=== PATIENT | male | born 1940 | race Asian ===

== ENCOUNTER 2017-07-05 08:15 | Inpatient (IN) | payer MEDICARE, MEDICAID ==
[~2017-07-05] VITALS: Ht 162.6 cm; Wt 68.0 kg
--- NOTE | 2017-07-05 08:27 | Emergency Room Report ---
History of Present Illness General Chief Complaint: Generalized Weakness Source: Patient, EMS Present Illness HPI history of present illness obtained via Polish outside salesman 76-year-old male Brought in by EMS from home for low blood pressure Per patient's son on scene, patient's blood pressure usually systolic 90, this morning blood [id number] Dialysis Saturday Patient was recently in the hospital for suture repair of right leg laceration and for placement of right-sided dialysis catheter Patient himself has no complaints: Denies chest pain, shortness of breath, abdominal pain, weakness, dizziness Allergies: Coded Allergies: No Known Allergies (Verified , 04/24/10) Patient History Past Medical History: DM Past Surgical History: other - Right chest permacath Pertinent Family History: none Social History: Denies: smoking, alcohol use, drug use Immunizations: UTD Reviewed Nursing Documentation: PMH: Agreed, PSxH: Agreed Nursing Documentation-PMH Past Medical History: No History, Except For Hx Cardiac Problems: Yes Hx Diabetes: Yes Hx Dialysis: Yes - [facility]. Review of Systems All Other Systems: negative except mentioned in HPI Physical Exam Vital Signs Date Time Temp Pulse Resp B/P (MAP) Pulse Ox O2 Delivery O2 Flow Rate FiO2 07/05/17 08:11 88 20 110/70 97 Room Air Sp02 EP Interpretation: reviewed, normal General Appearance: normal inspection, well appearing, no apparent distress, alert, GCS 15, non-toxic, other - weak appearing Head: normocephalic, atraumatic Eyes: bilateral eye PERRL, bilateral eye EOMI ENT: normal ENT inspection, hearing grossly normal, normal pharynx, no angioedema, normal voice, TMs + canals normal, uvula midline, moist mucus membranes Neck: normal inspection, full range of motion, supple, thyroid normal, no meningismus, no bony tend Respiratory: normal inspection, lungs clear, normal breath sounds, no rhonchi, no respiratory distress, no retraction, no accessory muscle use, no wheezing, speaking full sentences, other - bedside ultrasound: No B-lines/pulm edema Cardiovascular #1: regular rate, rhythm, no edema, no JVD, normal capillary refill, other - permacath right chest wall; bedside echo: no pericardial effusion Gastrointestinal: normal inspection, normal bowel sounds, non tender, soft, no mass, no peritonitis, non-distended, no guarding, no hernia, no pulsatile mass, other - Catheter on right abdomen - peritoneal? Genitourinary: no CVA tenderness Musculoskeletal: normal inspection, back normal, normal range of motion, no calf tenderness, pelvis stable, Keli's Sign negative, other - Right leg: large 8-10cm healing laceration with sutures. Neurologic: normal inspection, alert, responsive, setter machine III-XII nml as tested, motor strength/tone normal, cerebellar normal, normal gait, speech normal Psychiatric: normal inspection, judgement/insight normal, mood/affect normal, no suicidal/homicidal ideation, no delusions Skin: normal inspection, normal color, no rash Lymphatic: normal inspection, no adenopathy Procedures Critical Care Time Critical Care Time CC time 35 min Critical care time endorsed for this patient for AMS, hypotension Critical care time includes review of laboratory tests, imaging, review of EMR, review of paperwork from SNF (if available), discussion with patient and family (if available), review of code status/POLS (if available). Critical care time also likely includes assessment of fluid status, stabilization of vital signs, selection and dosing of appropriate antibiotics, selection and dosing of Aspirin/Plavix/Heparin/Lovenox, discussion with PMD/ attending hospitalist/general maintenance technician. Critical care time does not include any procedures which are documented elsewhere in this EMR. Medical Decision Making Medicare Attestation I Rajni Cordon MD hereby attest that the medical record entry for date of service, 07/05/17 accurately reflects signatures/notations that I made in my capacity as MD when I treated/diagnosed the above listed Medicare beneficiary. I attest that this information is true, accurate and complete to the best of my knowledge. I understand that any falsification, omission, or concealment of material fact may subject me to administrative, civil, or criminal liability. This patient warrants hospital admission for extreme of age and has a condition that cannot be treated as outpatient. Diagnostic Impression: Primary Impression: Episode of generalized weakness Additional Impressions: Hypotension Qualified Codes: I95.9 - Hypotension, unspecified Atrial fibrillation Qualified Codes: I48.2 - Chronic atrial fibrillation CKD (chronic kidney disease) requiring chronic dialysis ER Course 76-year-old male brought in for hypotension Here blood pressure is normal Known afib, not in RVR currently Patient remains asymptomatic Not in acute pulmonary edema, fluid overload Pro BNP is very elevated however creatinine is also elevated and in setting of known Ckd, it is unreliable indicator of acute CHF. Patient's lungs CTAB on auscultation and on bedside ultrasound. O2 sat 100% on RA. Unlikely acute pulm edema. CT head negative on ED review Serum Cr elevated but K normal Trop WNL ECG shows lateral ischemia - likely chronic Needs admission for ACS rule out BP remains stable in the ED Endorsed to Dr Rangel for tele admit, 936am EKG Diagnostic Results Rate: normal Rhythm: other - Atrial fib ST Segments: other - 1, AVL, V4-[address] depressions, Qwave in V3 Rhythm Strip Diag. Results EP Interpretation: yes Rate: 74 Rhythm: other - Multiple PVCs Chest X-Ray Diagnostic Results Chest X-Ray Diagnostic Results : Chest X-Ray Ordered: Yes Indication: Other - AMS EP Interpretation: Yes Interpretation: no consolidation, no effusion, no pneumothorax, no acute cardiopulmonary disease Impression: No acute disease Electronically Signed by: Dr Rajni Cordon MD Last Vital Signs Date Time Temp Pulse Resp B/P (MAP) Pulse Ox O2 Delivery O2 Flow Rate FiO2 07/05/17 08:11 88 20 110/70 97 Room Air Status: improved Disposition: ADMITTED INPATIENT Condition: Serious RAJNI CORDON M.D. Jul 05, 2017 08:27
[2017-07-05 08:39] VITALS: BP 116/65
[2017-07-05 08:53] LABS: BASOPHILS % (AUTO) 1.4 % (0.0-2.0); EOSINOPHILS % (AUTO) 1.9 % (0.0-3.0); LYMPHOCYTES % (AUTO) 19.9 % (20.0-45.0); MEAN CORPUSCULAR HEMOGLOBIN 32.8 PG (27.0-31.0); MEAN CORPUSCULAR VOLUME 103 FL (80-99); MEAN PLATELET VOLUME 7.1 FL (6.5-10.1); MONOCYTES % (AUTO) 14.4 % (1.0-10.0); NEUTROPHILS % (AUTO) 62.4 % (45.0-75.0); PLATELET COUNT 179 K/UL (150-450); RED BLOOD COUNT 3.14 M/UL (4.70-6.10); RED CELL DISTRIBUTION WIDTH 15.4 % (11.6-14.8); WHITE BLOOD COUNT 4.6 K/UL (4.8-10.8)
[2017-07-05 08:57] LABS: ANION GAP 12 mmol/L (5-15); CALCIUM 8.7 MG/DL (8.5-10.1); CARBON DIOXIDE 24 MMOL/L (21-32); CHLORIDE 104 MMOL/L (98-107); CREATININE 4.6 MG/DL (0.55-1.30); POTASSIUM 4.3 MMOL/L (3.5-5.1); SODIUM 140 MMOL/L (136-145)
[2017-07-05] MEDS ORDERED: METOPROLOL SUCC25 MG (09:00)
[2017-07-05] MEDS ORDERED: DIGOXIN125 MCG (09:00)
[2017-07-05] MEDS ORDERED: DOXAZOSIN MESYLA4 MG (09:00)
[2017-07-05] MEDS ORDERED: ELIQUIS2.5 MG (09:00)
[2017-07-05] MEDS ORDERED: LEVOTHYROXINE100 MCG (09:00)
[2017-07-05] MEDS ORDERED: MIDODRINE HCL5 MG (09:00)
[2017-07-05] MEDS ORDERED: PANTOPRAZOLE SO40 MG (09:00)
[2017-07-05] MEDS ORDERED: LOVAZA1 GM ORAL (09:02)
[2017-07-05] MEDS ORDERED: HUMALOG100 UNIT/3 (09:02)
[2017-07-05 09:12] LABS: ALANINE AMINOTRANSFERASE 6 U/L (12-78); ALBUMIN/GLOBULIN RATIO 0.6 (1.0-2.7); ASPARTATE AMINO TRANSFERASE 18 U/L (15-37); TOTAL PROTEIN 6.8 G/DL (6.4-8.2)
[2017-07-05 10:22] VITALS: BP 101/46
--- NOTE | 2017-07-05 10:22 | Diagnostic Imaging Report ---
Indication: Altered mental status Technique: spiral acquisitions obtained through the brain. Angled axial and coronal 5 x 5 mm slices were reconstructed. No IV contrast utilized. Radiation dose was minimized using automated exposure control Total dose length product 1453 mGycm. CTDIvol(s) 70 mGy Comparison: 01/02/2011 FINDINGS: No acute hemorrhage or edema. No mass effect or midline shift. There is progressive age-related enlargement of the ventricles and extra axial CSF spaces. There is periventricular deep white matter ischemic change which has increased considerably in the interim. Normal worrell-white differentiation. Visualized orbits are unremarkable. Visualized sinuses are unremarkable. Intact calvarium. IMPRESSION: Chronic and age-related changes which have progressed considerably since prior study of 01/02/2011. Negative for acute intracranial bleed or mass effect The CT scanner at [facility] is accredited by the [employer] and the scans are performed using protocols designed to limit radiation exposure to as low as reasonably achievable to attain images of sufficient resolution adequate for diagnostic evaluation
[2017-07-05] MEDS ORDERED: Sodium Chloride 500ML 500 ML IV ONE ×2 (10:45→17:40)
[2017-07-05 11:45] VITALS: BP 119/52
[2017-07-05 12:55] VITALS: BP 88/47
--- NOTE | 2017-07-05 14:04 | Diagnostic Imaging Report ---
Indication: Reason For Exam: SOB Technique: One view of the chest Comparison: 01/02/2011 Findings: There is infiltrate and likely pleural fluid at the left lung base. Trace right-sided pleural fluid is also evident. There are surgical odilia in the right arm. There is a right chest tunneled dialysis catheter. The heart is mildly enlarged. The aorta is tortuous and calcified Impression: Left basilar infiltrate and likely pleural fluid Small right pleural effusion Mild cardiomegaly
[2017-07-05 16:00] VITALS: BP_SYST 130; BP_SYST 93; BP_DIAS 58; BP_DIAS 61
[2017-07-05] MEDS ORDERED: Miralax 17gm pkt ORAL PRN (19:30)
--- NOTE | 2017-07-05 19:44 | History & Physical ---
History and Physical History & Physicial job # [id number] Toño Rangel MD Jul 05, 2017 19:44
--- NOTE | 2017-07-05 19:53 | Cardiology Progress Note ---
Assessment/Plan Assessment/Plan [id number] Objective Last 24 Hour Vital Signs Date Time Temp Pulse Resp B/P (MAP) Pulse Ox O2 Delivery O2 Flow Rate FiO2 07/05/17 16:00 81 07/05/17 16:00 97.7 90 20 93/58 96 07/05/17 12:55 97.4 90 19 88/47 94 Room Air 07/05/17 12:54 84 07/05/17 11:46 99.4 80 19 101/46 98 Room Air 07/05/17 11:45 99.4 82 21 119/52 100 Room Air 07/05/17 10:22 99.4 80 19 101/46 98 Room Air 07/05/17 08:39 99.4 84 21 116/65 98 Room Air 07/05/17 08:11 88 20 110/70 97 Room Air Intake and Output 07/05/17 07/06/17 19:00 07:00 Intake Total 500 ml 500 ml Balance 500 ml 500 ml Intake IV Total 500 ml Other 500 ml Laboratory Tests Test 07/05/17 08:20 White Blood Count 4.6 K/UL (4.8-10.8) L Red Blood Count 3.14 M/UL (4.70-6.10) L Hemoglobin 10.3 G/DL (14.2-18.0) L Hematocrit 32.2 % (42.0-52.0) L Mean Corpuscular Volume 103 FL (80-99) H Mean Corpuscular Hemoglobin 32.8 PG (27.0-31.0) H Mean Corpuscular Hemoglobin Concent 32.0 G/DL (32.0-36.0) Red Cell Distribution Width 15.4 % (11.6-14.8) H Platelet Count 179 K/UL (150-450) Mean Platelet Volume 7.1 FL (6.5-10.1) Neutrophils (%) (Auto) 62.4 % (45.0-75.0) Lymphocytes (%) (Auto) 19.9 % (20.0-45.0) L Monocytes (%) (Auto) 14.4 % (1.0-10.0) H Eosinophils (%) (Auto) 1.9 % (0.0-3.0) Basophils (%) (Auto) 1.4 % (0.0-2.0) Sodium Level 140 MMOL/L (136-145) Potassium Level 4.3 MMOL/L (3.5-5.1) Chloride Level 104 MMOL/L (98-107) Carbon Dioxide Level 24 MMOL/L (21-32) Anion Gap 12 mmol/L (5-15) Blood Urea Nitrogen 42 mg/dL (7-18) H Creatinine 4.6 MG/DL (0.55-1.30) H Estimat Glomerular Filtration Rate mL/min (>60) Glucose Level 185 MG/DL (74-106) H Calcium Level 8.7 MG/DL (8.5-10.1) Total Bilirubin 1.5 MG/DL (0.2-1.0) H Direct Bilirubin 1.0 MG/DL (0.0-0.3) H Aspartate Amino Transf (AST/SGOT) 18 U/L (15-37) Alanine Aminotransferase (ALT/SGPT) 6 U/L (12-78) L Alkaline Phosphatase 58 U/L (46-116) Total Creatine Kinase 36 U/L (26-308) Creatine Kinase MB 2.0 NG/ML (0.0-3.6) Creatine Kinase MB Relative Index 5.5 Troponin I 0.045 ng/mL (0.000-0.056) Pro-B-Type Natriuretic Peptide 17642 pg/mL (0-125) H Total Protein 6.8 G/DL (6.4-8.2) Albumin 2.6 G/DL (3.4-5.0) L Globulin 4.2 g/dL Albumin/Globulin Ratio 0.6 (1.0-2.7) L GRIFFIN ALMONTE Jul 05, 2017 19:53
[2017-07-05 20:00] VITALS: BP 103/61
[2017-07-05] MEDS ORDERED: Cefepime HCl 1 GM in D5W 55 ML IVPB SCH (20:30)
[2017-07-05] MEDS ORDERED: Vancomycin 1250mg/D5W 250ml IVPB ONE (21:00)
[2017-07-05] MEDS: NovoLOG Insulin Flexpen SUBQ SCH (21:12)
[2017-07-05] MEDS: Docusate 100mg cap ORAL SCH (21:13)
[2017-07-06] VITALS (9 sets, daily range): BP systolic 80–107; BP diastolic 51–74
--- NOTE | 2017-07-06 01:17 | Consultation ---
DATE OF CONSULTATION: 07/05/2017 CARDIOLOGY CONSULTATION CONSULTING PHYSICIAN: Faisal Ortega M.D. REFERRING PHYSICIAN: Carlos Rangel M.D. REASON FOR REFERRAL: Hypotension. HISTORY OF PRESENT ILLNESS: This is a very unfortunate gentleman, who is 76-year-old with a history of end-stage renal disease, on hemodialysis for approximately 3 years, but has apparently atrial fibrillation on prior occasions. The patient has recently been in a hospital for laceration repair somewhere as I understand it. His blood pressure usually on the low side. It is lower than usual in the 60s. Paramedics were summoned. The patient was brought into the emergency room at [facility] with some improvement in his blood pressure. This consultation was requested. The patient denies any chest pain. Denies any shortness of breath. Denies any dizziness or lightheadedness. However, the information that is provided to me, I am not sure how accurate it is. PAST MEDICAL HISTORY: Obtained from the patient's over the phone. He used to have high blood pressure, not low blood pressure; diabetes; possibly history of two prior heart attacks. No cancer. No stroke. No hepatitis. No tuberculosis. No asthma. No emphysema. He does have a history of kidney problems. No liver problems, thyroid problems, or anemia. ALLERGIES: He is not allergic to any medication. SOCIAL HISTORY: He does not smoke. Does not drink alcoholic beverages. REVIEW OF SYSTEMS: Unable to obtain. PHYSICAL EXAMINATION: GENERAL: Shows him to be an elderly gentleman, in no respiratory distress. NECK: Supple. No jugular venous distention. No abdominojugular reflux noted. LUNGS: Clear to auscultation and percussion. CARDIAC EXAMINATION: S1 is normal. S2 is normal. Irregularly irregular. There is a holosystolic regurgitant murmur noted. ABDOMEN: Soft and nontender. Positive bowel sounds. EXTREMITIES: There is no edema. NEUROLOGIC: He is awake and responsive. LABORATORY AND DIAGNOSTIC DATA: He had a CT scan of his head that shows chronic age-related changes, progressed since the prior study in 2010. A chest x-ray performed shows left basilar infiltrate, likely small right pleural effusion and mild cardiomegaly. His EKG shows atrial fibrillation. Ventricular response appears to be well controlled. He does have some ST-segment depression in multiple leads, chronicity of which is unfortunately unknown. His blood tests show white count of 4.6, hemoglobin 10.3 and platelet count of 179. Sodium is 140, potassium 4.3, chloride 104, bicarbonate 24, BUN 42, creatinine 4.6 and glucose of 185. Calcium is 8.7. Troponin is 0.05. ProBNP is 15,000. Laboratories are otherwise pending. ASSESSMENT: 1. Hypotension. The possibilities include volume and/or distributive sepsis. 2. Atrial fibrillation, likely permanent. Ventricular response appears to be controlled. 3. End-stage renal disease, on hemodialysis. Dr. Rangel, this patient was seen in cardiac consultation. The patient appears to be quite comfortable. His most recent blood pressure is 93/58. His baseline reportedly is in the 90s. Pulse is 90. He is afebrile. I will follow him up. I ordered a set of cortisol and cardiac enzymes for tomorrow and an echocardiogram and repeat EKG. If needed, a small bolus of fluid will be administered in light of the fact that the patient has end-stage renal disease, and on hemodialysis, I would like to avoid volume of significant degree if possible. Faisal Ortega M.D. DR: CAROL JOB#: [id number] CC:
--- NOTE | 2017-07-06 01:17 | History and Physical Report ---
DATE OF ADMISSION: 07/05/2017 CHIEF COMPLAINT: Hypotension. HISTORY OF PRESENT ILLNESS: This is a 76-year-old Italian gentleman with past medical history significant for end-stage renal disease, on hemodialysis, was on peritoneal dialysis switched to hemodialysis recently, history of hypotension, hypothyroidism, chronic atrial fibrillation, coronary artery disease, diabetes type 2, who was presented to the hospital after he was found to be hypotensive at home. His usual systolic blood pressure is in the 90s, however, at home in the morning, it was 60/40. The patient usually goes on dialysis Saturday, Saturday, and Saturday and was recently seen at the hospital for suture repair of the right lower extremity laceration and for placement of the right-sided dialysis access, AV fistula. The patient shortly after initial evaluation in emergency was noted to have blood pressure of 110/70 and a repeat one was noted to be 88/47 and subsequently, the patient was admitted to the hospital for further evaluation and workup of possible sepsis. PAST MEDICAL HISTORY AND PAST SURGICAL HISTORY: As above. History of diabetes type 2, end-stage renal disease, he used to be on peritoneal dialysis switched to the hemodialysis at this time, history of hypothyroidism, atrial fibrillation, coronary artery disease, diabetes type 2, status post right-side chest wall PermCath placement as well as right upper extremity AV fistula, and a peritoneum catheter placement. MEDICATIONS: At home, significant for Eliquis, digoxin, doxazosin, lispro insulin, levothyroxine, metoprolol, midodrine, Lovaza, and Nexium. ALLERGIES: No known drug allergies. SOCIAL HISTORY: No smoking, alcohol, or drugs at this time. FAMILY HISTORY: Noncontributory. REVIEW OF SYSTEMS: Very limited secondary to the patient is Italian speaking and he is not very cooperative, however, the patient denies any fever or chills. Denies any nausea or vomiting. Denies any chest pain. Denies any double vision. PHYSICAL EXAMINATION: VITAL SIGNS: Temperature of 97.7, pulse of 92, respirations 20, blood pressure 88/47 and repeat was 93/58. GENERAL: The patient is awake, responsive, in no acute distress. HEAD AND NECK: Pupils are equal and reactive to light. Extraocular movements are intact. Neck was supple. No JVD. LUNGS: Good air entry. No wheezing or rales. Decreased in the bases. Poor inspiratory effort. CHEST: The patient has PermCath that was noted in the right side of chest wall. HEART: S1 and S2. Irregularly irregular. No murmur was appreciated. ABDOMEN: Soft, not distended. Peritoneal catheter was noted in the right lower quadrant. EXTREMITIES: No cyanosis, clubbing, or edema. The patient has a laceration with Steri-Strips on the right lower extremity and anterior mims as well as right upper extremity has an AV fistula. NEUROLOGIC: Cranial nerves II through XII grossly intact. That patient is moving all extremities slowly. Gait was not assessed due to the patient's status. LABORATORY AND DIAGNOSTIC DATA: On admission, sodium 140, potassium 4.2, chloride 104, bicarbonate 24, BUN 42, creatinine 4.6, and glucose 185. Total bilirubin of 1.5, direct bilirubin of 1.0, AST of 18, ALT of 6, alkaline phosphatase of 58. First troponin 0.045. ProBNP 14,969. Albumin 2.6. WBC of 4.6, hemoglobin 10.3, hematocrit 32, and platelets 179,000. The patient had chest x-ray, left basilar infiltrate and likely pleural effusion, small right pleural effusion, mild cardiomegaly. CT of the was done and shows chronic and age-related changes which have been progressive considerably since prior study and negative for acute intracranial bleed or mass effect. The patient's EKG shows atrial fibrillation with ventricular rate of 85, the patient has ST depression in the inferolateral leads, no ST elevation was identified. ASSESSMENT: 1. Hypotension, possibly due to the sepsis. 2. End-stage renal disease, on hemodialysis. 3. Anemia of chronic kidney disease. 4. Hypothyroidism. 5. Acute atrial fibrillation. 6. Coronary artery disease. 7. Diabetes type 2. 8. Right anterior mims laceration. PLAN: Admit the patient to telemetry. We will follow up with Dr. Faisal Ortega from cardiology and Dr. Marcus Vance from nephrology. We will monitor laboratory. IV hydration was given already boluses. We will follow up with the laboratory in the morning. Broad-spectrum antibiotics of vancomycin and cefepime. We will follow up with culture. We will Accu-Chek with sliding scale. Resume home medications. We will consider to get PT and OT evaluation in the morning. Code status is full code. DVT prophylaxis with Eliquis. Toño Rangel M.D. DR: Mora JOB#: [id number] CC:
[2017-07-06] MEDS: NovoLOG Insulin Flexpen SUBQ SCH ×4 (05:54→22:06)
[2017-07-06 07:48] LABS: EOSINOPHILS % (AUTO) 2.4 % (0.0-3.0); LYMPHOCYTES % (AUTO) 16.8 % (20.0-45.0); MEAN CORPUSCULAR HGB CONC 33.7 G/DL (32.0-36.0); MEAN CORPUSCULAR VOLUME 101 FL (80-99); MEAN PLATELET VOLUME 7.1 FL (6.5-10.1); MONOCYTES % (AUTO) 13.9 % (1.0-10.0); NEUTROPHILS % (AUTO) 65.9 % (45.0-75.0); PLATELET COUNT 170 K/UL (150-450); RED BLOOD COUNT 2.68 M/UL (4.70-6.10); RED CELL DISTRIBUTION WIDTH 14.9 % (11.6-14.8); WHITE BLOOD COUNT 4.1 K/UL (4.8-10.8)
[2017-07-06 08:18] LABS: ANION GAP 13 mmol/L (5-15); CALCIUM 8.2 MG/DL (8.5-10.1); CARBON DIOXIDE 20 MMOL/L (21-32); CHLORIDE 109 MMOL/L (98-107); CHOLESTEROL 123 MG/DL (< 200); CHOLESTEROL/HDL RATIO 9.5 (3.3-4.4); CREATININE 4.1 MG/DL (0.55-1.30); DIGOXIN 1.4 NG/ML (0.5-2.0); MAGNESIUM 1.8 MG/DL (1.8-2.4); POTASSIUM 3.7 MMOL/L (3.5-5.1); SODIUM 142 MMOL/L (136-145)
[2017-07-06 08:21] LABS: HEMOGLOBIN A1C 6.5 % (4.3-6.0)
[2017-07-06] MEDS: Metoprolol Succinate XL 25mg tab ORAL SCH (09:00)
[2017-07-06] MEDS ORDERED: Digoxin 0.125mg tab ORAL SCH (09:00)
--- NOTE | 2017-07-06 09:05 | Consultation ---
Consult Note Consult Note asked to eval for dialysis management history of present illness obtained via Arabic scientist 76-year-old male Brought in by EMS from home for low blood pressure Per patient's son on scene, patient's blood pressure usually systolic 90, this morning blood [id number] Dialysis Saturday Patient was recently in the hospital for suture repair of right leg laceration and for placement of right-sided dialysis catheter Patient himself has no complaints: Denies chest pain, shortness of breath, abdominal pain, weakness, dizziness Past Medical History: DM Past Surgical History: other - Right chest permacath Past Medical History: No History, Except For Hx Cardiac Problems: Yes Hx Diabetes: Yes Hx Dialysis: Yes - [facility]. examined- data reviewed Assessment/Plan - End-stage renal disease, on hemodialysis. previously on PD, has right-side chest wall PermCath placement - Hypotension, possibly due to the sepsis. - Anemia of chronic kidney disease. - Hypothyroidism. - Acute atrial fibrillation. - Coronary artery disease. - Diabetes type 2. Plan: Antibiotics HD Midodrin per orders JULIO CESAR LONGO Jul 06, 2017 09:05
[2017-07-06] MEDS: Docusate 100mg cap ORAL SCH ×2 (10:35→22:04)
[2017-07-06] MEDS: Eliquis 2.5mg tablet ORAL SCH ×2 (10:41→18:33)
--- NOTE | 2017-07-06 13:26 | Cardiology Progress Note ---
Assessment/Plan Assessment/Plan 1. Hypotension. resolved 2. Atrial fibrillation, likely permanent. Ventricular response appears to be controlled. 3. End-stage renal disease, on hemodialysis 4. Low tsh all trop neg bp seem improved on midodrine dig level is fine check remainder of tfts chage dig to evefy other day on hemodialysis may need less tele afib Subjective ROS Limited/Unobtainable: Yes Subjective not verbal to a sig degree Objective Last 24 Hour Vital Signs Date Time Temp Pulse Resp B/P (MAP) Pulse Ox O2 Delivery O2 Flow Rate FiO2 07/06/17 10:35 69 07/06/17 08:00 85 07/06/17 08:00 97.2 75 18 104/53 100 Room Air 07/06/17 04:00 97.9 87 18 101/66 100 07/06/17 04:00 77 07/06/17 00:00 97.0 80 18 94/70 100 07/05/17 21:00 78 07/05/17 20:00 97.5 88 18 103/61 100 Room Air 07/05/17 16:00 81 07/05/17 16:00 97.7 90 20 93/58 96 General Appearance: no apparent distress, alert Neck: no JVD Cardiovascular: systolic murmur, irregularly irregular Respiratory/Chest: crackles/rales Abdomen: normal bowel sounds, non tender, soft Extremities: no calf tenderness Intake and Output 07/06/17 07/07/17 19:00 07:00 Intake Total 120 ml Balance 120 ml Intake Oral 120 ml Laboratory Tests Test 07/06/17 05:30 White Blood Count 4.1 K/UL (4.8-10.8) L Red Blood Count 2.68 M/UL (4.70-6.10) L Hemoglobin 9.1 G/DL (14.2-18.0) L Hematocrit 27.1 % (42.0-52.0) L Mean Corpuscular Volume 101 FL (80-99) H Mean Corpuscular Hemoglobin 34.0 PG (27.0-31.0) H Mean Corpuscular Hemoglobin Concent 33.7 G/DL (32.0-36.0) Red Cell Distribution Width 14.9 % (11.6-14.8) H Platelet Count 170 K/UL (150-450) Mean Platelet Volume 7.1 FL (6.5-10.1) Neutrophils (%) (Auto) 65.9 % (45.0-75.0) Lymphocytes (%) (Auto) 16.8 % (20.0-45.0) L Monocytes (%) (Auto) 13.9 % (1.0-10.0) H Eosinophils (%) (Auto) 2.4 % (0.0-3.0) Basophils (%) (Auto) 1.0 % (0.0-2.0) Sodium Level 142 MMOL/L (136-145) Potassium Level 3.7 MMOL/L (3.5-5.1) Chloride Level 109 MMOL/L (98-107) H Carbon Dioxide Level 20 MMOL/L (21-32) L Anion Gap 13 mmol/L (5-15) Blood Urea Nitrogen 42 mg/dL (7-18) H Creatinine 4.1 MG/DL (0.55-1.30) H Estimat Glomerular Filtration Rate mL/min (>60) Glucose Level 114 MG/DL (74-106) H Hemoglobin A1c 6.5 % (4.3-6.0) H Calcium Level 8.2 MG/DL (8.5-10.1) L Magnesium Level 1.8 MG/DL (1.8-2.4) Troponin I 0.055 ng/mL (0.000-0.056) Triglycerides Level 169 MG/DL (30-150) H Cholesterol Level 123 MG/DL (< 200) LDL Cholesterol 79 mg/dL (<100) HDL Cholesterol 13 MG/DL (40-60) L Cholesterol/HDL Ratio 9.5 (3.3-4.4) H Thyroid Stimulating Hormone (TSH) 0.250 uiU/mL (0.358-3.740) Digoxin Level 1.4 NG/ML (0.5-2.0) GRIFFIN ALMONTE Jul 06, 2017 13:26
--- NOTE | 2017-07-06 14:34 | Internal Med Progress Note ---
Subjective Date of Service: Jul 06, 2017 Physician Name Joseph Corral Attending Physician Toño Rangel MD Current Medications Medications (Trade) Dose Ordered Sig/Dana Route PRN Reason Start Time Stop Time Status Last Admin Dose Admin Acetaminophen (Tylenol) 650 mg Q4H PRN ORAL Mild Pain (Pain Scale 1-3) 07/05/17 19:30 08/04/17 19:29 Acetaminophen (Tylenol) 650 mg Q4H PRN ORAL T>100.5 07/05/17 19:30 08/04/17 19:29 Apixaban (Eliquis) 2.5 mg BID ORAL 07/06/17 09:00 08/05/17 08:59 07/06/17 10:41 Bisacodyl (Dulcolax) 10 mg DAILYPRN PRN RECTAL Constipation 07/05/17 19:45 08/04/17 19:29 Cefepime HCl 1 gm/ Dextrose 55 ml @ 110 mls/hr Q24H IVPB 07/05/17 20:30 07/12/17 20:29 07/05/17 21:11 Chlorhexidine Gluconate (Tiny-Hex 2%) 1 applic DAILY@2000 TOPIC 07/06/17 20:00 08/05/17 19:59 Dextrose (Dextrose 50%) STAT PRN IV Hypoglycemia 07/05/17 19:30 08/04/17 19:29 Digoxin (Lanoxin) 0.125 mg QOD ORAL 07/08/17 09:00 08/05/17 08:59 UNV Docusate Sodium (Colace) 100 mg EVERY 12 HOURS ORAL 07/05/17 21:00 08/04/17 20:59 07/06/17 10:35 Insulin Aspart (NovoLOG) BEFORE MEALS AND HS SUBQ 07/05/17 21:00 08/04/17 20:59 07/06/17 05:54 Levothyroxine Sodium (Synthroid) 50 mcg DAILY@0630 ORAL 07/07/17 06:30 08/06/17 06:29 Metoprolol Succinate (Toprol XL) 25 mg DAILY ORAL 07/06/17 09:00 08/05/17 08:59 Midodrine (Pro-Amatine) 5 mg Q8HR ORAL 07/06/17 06:00 08/05/17 05:59 07/06/17 05:40 Ondansetron HCl (Zofran) 4 mg Q6H PRN IVP Nausea & Vomiting 07/05/17 19:30 08/04/17 19:29 Pantoprazole (Protonix) 40 mg DAILY ORAL 07/06/17 09:00 08/05/17 08:59 07/06/17 10:35 Polyethylene Glycol (Miralax) 17 gm DAILYPRN PRN ORAL Constipation 07/05/17 19:30 08/04/17 19:29 Vancomycin HCl (Vanco rx to dose) 1 ea DAILY PRN MISC Per rx protocol 07/05/17 19:45 08/04/17 19:44 Allergies: Coded Allergies: No Known Allergies (Verified , 04/24/10) ROS Limited/Unobtainable: No Subjective 76 YO M admitted with hypotension and sepsis. Cover for Int Peña-Dr Rangel Objective Last Vital Signs Date Time Temp Pulse Resp B/P (MAP) Pulse Ox O2 Delivery O2 Flow Rate FiO2 07/06/17 10:35 69 07/06/17 08:00 97.2 18 104/53 100 Room Air Laboratory Tests Test 07/06/17 05:30 White Blood Count 4.1 K/UL (4.8-10.8) L Red Blood Count 2.68 M/UL (4.70-6.10) L Hemoglobin 9.1 G/DL (14.2-18.0) L Hematocrit 27.1 % (42.0-52.0) L Mean Corpuscular Volume 101 FL (80-99) H Mean Corpuscular Hemoglobin 34.0 PG (27.0-31.0) H Mean Corpuscular Hemoglobin Concent 33.7 G/DL (32.0-36.0) Red Cell Distribution Width 14.9 % (11.6-14.8) H Platelet Count 170 K/UL (150-450) Mean Platelet Volume 7.1 FL (6.5-10.1) Neutrophils (%) (Auto) 65.9 % (45.0-75.0) Lymphocytes (%) (Auto) 16.8 % (20.0-45.0) L Monocytes (%) (Auto) 13.9 % (1.0-10.0) H Eosinophils (%) (Auto) 2.4 % (0.0-3.0) Basophils (%) (Auto) 1.0 % (0.0-2.0) Sodium Level 142 MMOL/L (136-145) Potassium Level 3.7 MMOL/L (3.5-5.1) Chloride Level 109 MMOL/L (98-107) H Carbon Dioxide Level 20 MMOL/L (21-32) L Anion Gap 13 mmol/L (5-15) Blood Urea Nitrogen 42 mg/dL (7-18) H Creatinine 4.1 MG/DL (0.55-1.30) H Estimat Glomerular Filtration Rate mL/min (>60) Glucose Level 114 MG/DL (74-106) H Hemoglobin A1c 6.5 % (4.3-6.0) H Calcium Level 8.2 MG/DL (8.5-10.1) L Magnesium Level 1.8 MG/DL (1.8-2.4) Troponin I 0.055 ng/mL (0.000-0.056) Triglycerides Level 169 MG/DL (30-150) H Cholesterol Level 123 MG/DL (< 200) LDL Cholesterol 79 mg/dL (<100) HDL Cholesterol 13 MG/DL (40-60) L Cholesterol/HDL Ratio 9.5 (3.3-4.4) H Thyroid Stimulating Hormone (TSH) 0.250 uiU/mL (0.358-3.740) Digoxin Level 1.4 NG/ML (0.5-2.0) Intake and Output 07/06/17 07/07/17 19:00 07:00 Intake Total 120 ml Balance 120 ml Intake Oral 120 ml Assessment/Plan Assessment/Plan ASSESSMENT: 1. Hypotension, possibly due to the sepsis. 2. End-stage renal disease, on hemodialysis. 3. Anemia of chronic kidney disease. 4. Hypothyroidism. 5. Acute atrial fibrillation. 6. Coronary artery disease. 7. Diabetes type 2. 8. Right anterior mims laceration. PLAN: Admit the patient to telemetry. We will follow up with Dr. Faisal Ortega from cardiology and Dr. Marcus Vance from nephrology. We will monitor laboratory. IV hydration was given already boluses. We will follow up with the laboratory in the morning. Broad-spectrum antibiotics of vancomycin and cefepime. We will follow up with culture. We will Accu-Chek with sliding scale. Resume home medications. We will consider to get PT and OT evaluation in the morning. Code status is full code. DVT prophylaxis with Eliquis. Hemodialysis today 07/06/17 per nephrology JOSEPH CORRAL Jul 06, 2017 14:34
[2017-07-06] MEDS ORDERED: Sodium Chloride 500ML 500 ML IV ONE (15:45)
[2017-07-06] MEDS: Midodrine 10mg tab ORAL SCH (18:33)
[2017-07-06] MEDS ORDERED: Vancomycin 750mg/NS 250ml IVPB ONE (22:00)
[2017-07-06] MEDS: Dyna-Hex 2% Top Sol 2oz TOPIC SCH (22:04)
[2017-07-06] MEDS: Cefepime 500mg in D5W 55ml IVPB SCH (22:04)
[2017-07-07] VITALS: BP 94/56
[2017-07-07 04:50] VITALS: BP 96/56
[2017-07-07] MEDS: NovoLOG Insulin Flexpen SUBQ SCH ×4 (06:19→20:58)
[2017-07-07 07:55] LABS: BASOPHILS % (AUTO) 1.1 % (0.0-2.0); EOSINOPHILS % (AUTO) 1.6 % (0.0-3.0); LYMPHOCYTES % (AUTO) 16.1 % (20.0-45.0); MEAN CORPUSCULAR HEMOGLOBIN 33.5 PG (27.0-31.0); MEAN CORPUSCULAR HGB CONC 32.3 G/DL (32.0-36.0); MEAN CORPUSCULAR VOLUME 104 FL (80-99); MEAN PLATELET VOLUME 6.8 FL (6.5-10.1); MONOCYTES % (AUTO) 17.5 % (1.0-10.0); NEUTROPHILS % (AUTO) 63.8 % (45.0-75.0); PLATELET COUNT 174 K/UL (150-450); RED BLOOD COUNT 2.76 M/UL (4.70-6.10); RED CELL DISTRIBUTION WIDTH 15.3 % (11.6-14.8); WHITE BLOOD COUNT 4.9 K/UL (4.8-10.8)
[2017-07-07 08:00] VITALS: BP 98/52
[2017-07-07 08:12] LABS: HEMOGLOBIN A1C 6.8 % (4.3-6.0)
[2017-07-07 08:15] LABS: IRON 71 ug/dL (50-175); TOTAL IRON BINDING CAPACITY 121 ug/dL (250-450)
[2017-07-07 08:19] LABS: ALANINE AMINOTRANSFERASE < 6 U/L (12-78); ALBUMIN/GLOBULIN RATIO 0.6 (1.0-2.7); ANION GAP 10 mmol/L (5-15); ASPARTATE AMINO TRANSFERASE 21 U/L (15-37); CALCIUM 8.1 MG/DL (8.5-10.1); CARBON DIOXIDE 30 MMOL/L (21-32); CHLORIDE 105 MMOL/L (98-107); CREATININE 2.6 MG/DL (0.55-1.30); CRP QUANT 5.7 mg/dL (0.00-0.90); MAGNESIUM 1.7 MG/DL (1.8-2.4); PHOSPHORUS 2.5 MG/DL (2.5-4.9); POTASSIUM 3.9 MMOL/L (3.5-5.1); SODIUM 145 MMOL/L (136-145); TOTAL PROTEIN 5.9 G/DL (6.4-8.2); URIC ACID 2.9 MG/DL (2.6-7.2)
[2017-07-07 08:21] LABS: BILIRUBIN,DIRECT 0.9 MG/DL (0.0-0.3)
[2017-07-07 08:45] LABS: FOLIC ACID 10.6 NG/ML (8.6-58.9)
[2017-07-07] MEDS: Metoprolol Succinate XL 25mg tab ORAL SCH (09:00)
[2017-07-07 09:21] LABS: FERRITIN > 2000 NG/ML (8-388)
--- NOTE | 2017-07-07 09:35 | Nephrology Progress Note ---
Assessment/Plan Assessment - End-stage renal disease, on hemodialysis. previously on PD, has right-side chest wall PermCath placement - Hypotension, possibly due to the sepsis. - Anemia of chronic kidney disease. - Hypothyroidism. - Acute atrial fibrillation. - Coronary artery disease. - Diabetes type 2. Plan Plan: dialysed 07/06 Antibiotics Midodrine tid check cortisol level prelim echo reported 65% ej fx mag supplement per orders Subjective ROS Limited/Unobtainable: No Constitutional: Reports: malaise, weakness Objective Objective Last 24 Hour Vital Signs Date Time Temp Pulse Resp B/P (MAP) Pulse Ox O2 Delivery O2 Flow Rate FiO2 07/07/17 04:50 97.7 102 20 96/56 93 Room Air 07/07/17 04:00 81 07/07/17 04:00 81 07/07/17 01:04 86 07/07/17 00:00 97.6 94 20 94/56 91 Room Air 07/06/17 20:00 87 07/06/17 20:00 97.6 90 20 100/54 93 Room Air 07/06/17 16:30 100/74 07/06/17 16:00 94 07/06/17 16:00 97.9 91 20 94/68 95 Room Air 07/06/17 15:42 Room Air 07/06/17 15:42 Room Air 07/06/17 14:30 Room Air 07/06/17 14:30 97.0 93 20 80/51 Room Air 07/06/17 12:30 Room Air 07/06/17 12:30 97.5 86 20 107/61 Room Air 07/06/17 12:00 97.5 89 20 102/60 100 Room Air 07/06/17 12:00 81 07/06/17 11:30 Room Air 07/06/17 10:35 69 Intake and Output 07/07/17 07/08/17 19:00 07:00 # Bowel Movements 1 Laboratory Tests 07/06/17 19:40: Random Vancomycin Level 11.6 07/07/17 05:20: White Blood Count 4.9, Red Blood Count 2.76L, Hemoglobin 9.2L, Hematocrit 28.6L , Mean Corpuscular Volume 104H, Mean Corpuscular Hemoglobin 33.5H, Mean Corpuscular Hemoglobin Concent 32.3, Red Cell Distribution Width 15.3H, Platelet Count 174, Mean Platelet Volume 6.8, Neutrophils (%) (Auto) 63.8, Lymphocytes (%) (Auto) 16.1L, Monocytes (%) (Auto) 17.5H, Eosinophils (%) (Auto ) 1.6, Basophils (%) (Auto) 1.1, Sodium Level 145, Potassium Level 3.9, Chloride Level 105, Carbon Dioxide Level 30, Anion Gap 10, Blood Urea Nitrogen 17, Creatinine 2.6H, Estimat Glomerular Filtration Rate , Glucose Level 95, Hemoglobin A1c 6.8H, Uric Acid 2.9, Calcium Level 8.1L, Phosphorus Level 2.5, Magnesium Level 1.7L, Iron Level 71, Total Iron Binding Capacity 121L, Percent Iron Saturation 59H, Unsaturated Iron Binding 50L, Ferritin > 2000H, Total Bilirubin 2.0H, Direct Bilirubin 0.9H, Gamma Glutamyl Transpeptidase 47, Aspartate Amino Transf (AST/SGOT) 21, Alanine Aminotransferase (ALT/SGPT) < 6L, Alkaline Phosphatase 50, Total Creatine Kinase 43, Troponin I 0.102H, C- Reactive Protein, Quantitative 5.7H, Total Protein 5.9L, Albumin 2.3L, Globulin 3.6, Albumin/Globulin Ratio 0.6L, Vitamin B12 Level 1069H, Folate 10.6, Digoxin Level 2.0 Height (Feet): 5 Height (Inches): 4.00 Weight (Pounds): 150 General Appearance: no apparent distress Cardiovascular: tachycardia Respiratory/Chest: decreased breath sounds Abdomen: soft JULIO CESAR LONGO Jul 07, 2017 09:35
[2017-07-07] MEDS: Midodrine 10mg tab ORAL SCH ×3 (10:49→17:26)
[2017-07-07] MEDS: Eliquis 2.5mg tablet ORAL SCH ×2 (10:50→17:26)
[2017-07-07] MEDS: Docusate 100mg cap ORAL SCH ×2 (10:50→22:00)
[2017-07-07 12:00] VITALS: BP 92/58
--- NOTE | 2017-07-07 12:04 | Cardiology Progress Note ---
Assessment/Plan Assessment/Plan 1. Hypotension. resolved 2. Atrial fibrillation, likely permanent. Ventricular response appears to be controlled. 3. End-stage renal disease, on hemodialysis 4. Low tsh trip today min elelvated still bellow threshold for mi byu WHO criterea bp seem baselien level per description on midodrine dig level is fine awiat tfts tele afib hr controlled Subjective Subjective not verbal to a sig degree Objective Last 24 Hour Vital Signs Date Time Temp Pulse Resp B/P (MAP) Pulse Ox O2 Delivery O2 Flow Rate FiO2 07/07/17 04:50 97.7 102 20 96/56 93 Room Air 07/07/17 04:00 81 07/07/17 04:00 81 07/07/17 01:04 86 07/07/17 00:00 97.6 94 20 94/56 91 Room Air 07/06/17 20:00 87 07/06/17 20:00 97.6 90 20 100/54 93 Room Air 07/06/17 16:30 100/74 07/06/17 16:00 94 07/06/17 16:00 97.9 91 20 94/68 95 Room Air 07/06/17 15:42 Room Air 07/06/17 15:42 Room Air 07/06/17 14:30 Room Air 07/06/17 14:30 97.0 93 20 80/51 Room Air 07/06/17 12:30 Room Air 07/06/17 12:30 97.5 86 20 107/61 Room Air General Appearance: no apparent distress, alert Neck: no JVD Cardiovascular: tachycardia, systolic murmur Respiratory/Chest: crackles/rales Abdomen: normal bowel sounds, non tender, soft Extremities: no swelling Intake and Output 07/07/17 07/08/17 19:00 07:00 # Bowel Movements 1 Laboratory Tests Test 07/06/17 19:40 07/07/17 05:20 Random Vancomycin Level 11.6 ug/mL White Blood Count 4.9 K/UL (4.8-10.8) Red Blood Count 2.76 M/UL (4.70-6.10) L Hemoglobin 9.2 G/DL (14.2-18.0) L Hematocrit 28.6 % (42.0-52.0) L Mean Corpuscular Volume 104 FL (80-99) H Mean Corpuscular Hemoglobin 33.5 PG (27.0-31.0) H Mean Corpuscular Hemoglobin Concent 32.3 G/DL (32.0-36.0) Red Cell Distribution Width 15.3 % (11.6-14.8) H Platelet Count 174 K/UL (150-450) Mean Platelet Volume 6.8 FL (6.5-10.1) Neutrophils (%) (Auto) 63.8 % (45.0-75.0) Lymphocytes (%) (Auto) 16.1 % (20.0-45.0) L Monocytes (%) (Auto) 17.5 % (1.0-10.0) H Eosinophils (%) (Auto) 1.6 % (0.0-3.0) Basophils (%) (Auto) 1.1 % (0.0-2.0) Sodium Level 145 MMOL/L (136-145) Potassium Level 3.9 MMOL/L (3.5-5.1) Chloride Level 105 MMOL/L (98-107) Carbon Dioxide Level 30 MMOL/L (21-32) Anion Gap 10 mmol/L (5-15) Blood Urea Nitrogen 17 mg/dL (7-18) Creatinine 2.6 MG/DL (0.55-1.30) H Estimat Glomerular Filtration Rate mL/min (>60) Glucose Level 95 MG/DL (74-106) Hemoglobin A1c 6.8 % (4.3-6.0) H Uric Acid 2.9 MG/DL (2.6-7.2) Calcium Level 8.1 MG/DL (8.5-10.1) L Phosphorus Level 2.5 MG/DL (2.5-4.9) Magnesium Level 1.7 MG/DL (1.8-2.4) L Iron Level 71 ug/dL (50-175) Total Iron Binding Capacity 121 ug/dL (250-450) L Percent Iron Saturation 59 % (15-50) H Unsaturated Iron Binding 50 ug/dL (112-346) L Ferritin > 2000 NG/ML (8-388) H Total Bilirubin 2.0 MG/DL (0.2-1.0) H Direct Bilirubin 0.9 MG/DL (0.0-0.3) H Gamma Glutamyl Transpeptidase 47 U/L (5-85) Aspartate Amino Transf (AST/SGOT) 21 U/L (15-37) Alanine Aminotransferase (ALT/SGPT) < 6 U/L (12-78) L Alkaline Phosphatase 50 U/L (46-116) Total Creatine Kinase 43 U/L (26-308) Troponin I 0.102 ng/mL (0.000-0.056) C-Reactive Protein, Quantitative 5.7 mg/dL (0.00-0.90) H Total Protein 5.9 G/DL (6.4-8.2) L Albumin 2.3 G/DL (3.4-5.0) L Globulin 3.6 g/dL Albumin/Globulin Ratio 0.6 (1.0-2.7) L Vitamin B12 Level 1069 PG/ML (193-986) H Folate 10.6 NG/ML (8.6-58.9) Digoxin Level 2.0 NG/ML (0.5-2.0) Microbiology Date/Time Source Procedure Growth Status 07/05/17 09:30 Nasal Nares MRSA Culture - Final NO METHICILLIN RESISTANT STAPH AUREUS... Complete GRIFFIN ALMONTE Jul 07, 2017 12:04
--- NOTE | 2017-07-07 12:36 | Diagnostic Imaging Report ---
Indication: Cough Technique: XRAY Chest 1v Comparison: 07/05/2017 Findings: Heart size and mediastinal contours are stable. Atherosclerotic calcifications again noted in the aortic arch. Tunneled dialysis catheter unchanged in position. There is mild pulmonary vascular congestion. There is increased left pleural effusion and left basilar atelectasis/consolidation. There is no definite pneumothorax. Increasing airspace opacity at the right base. Osseous structures are stable.. Impression: Interval worsening of aeration of the bilateral bases with increased left pleural effusion and adjacent atelectasis/consolidation
--- NOTE | 2017-07-07 13:10 | Cardiology Report ---
APPROVED REPORT EXAM: Two-dimensional and M-mode echocardiogram with Doppler and color Doppler. INDICATION Chest Pain M-Mode DIMENSIONS IVSd2.1 (0.7-1.1cm)Left Atrium (MM)2.6 (1.6-4.0cm) LVDd3.6 (3.5-5.6cm)Aortic Root4.2 (2.0-3.7cm) PWd1.5 (0.7-1.1cm)Aortic Cusp Exc.2.0 (1.5-2.0cm) LVDs2.2 (2.5-4.0cm) PWs2.5 cm Normal left ventricular chamber size, systolic function and wall motion. Hyperdynamic left ventricle. Left ventricular ejection fraction estimated to be 65-70 %. Severe left ventricular hypertrophy. Possible large pleural effusion. Left atrium chamber size is within normal limits. Right atrial size at upper limits of normal. Right ventricular chamber size is within normal limits. Mild focal aortic valve sclerosis with adequate cusp excursion. Mildly thickened mitral valve leaflets with normal excursion. Heavy mitral annulus and aortic root calcification. Pulmonic valve not well visualized. Normal tricuspid valve structure. IVC measures at 1.8 cm with physiologic collapse suggestive of increased RA pressure. A color flow and spectral Doppler study was performed and revealed: Moderate aortic regurgitation. Peak pressure gradient for LVOT slightly elevated because of hyperdynamic systolic function. Moderate to severe mitral regurgitation. Left ventricular diastolic function could not be determined due to A-Fib. Mild tricuspid regurgitation. Tricuspid systolic velocities suggests peak right ventricular systolic pressure of 67 mmHg, consistent with severe pulmonary hypertension. Mild pulmonic regurgitation present.
--- NOTE | 2017-07-07 14:27 | Cardiology Report ---
APPROVED REPORT EKG Measurement Heart [id number] Atrial fibrillation Cannot rule out Inferior infarct, age undetermined Anterior infarct, age undetermined Abnormal ECG
--- NOTE | 2017-07-07 14:37 | Cardiology Report ---
APPROVED REPORT EKG Measurement Heart [id number] Atrial fibrillation Inferior infarct, age undetermined Possible Anterior infarct, age undetermined Abnormal ECG
[2017-07-07] MEDS ORDERED: Tubing IV Secondary IV ONE (15:18)
[2017-07-07] MEDS ORDERED: NS 500ML ONE (15:18)
[2017-07-07 16:00] VITALS: BP 99/49
--- NOTE | 2017-07-07 17:08 | Internal Med Progress Note ---
Subjective Date of Service: Jul 07, 2017 Physician Name Corral,Joseph Attending Physician Toño Rangel MD Current Medications Medications (Trade) Dose Ordered Sig/Dana Route PRN Reason Start Time Stop Time Status Last Admin Dose Admin Acetaminophen (Tylenol) 650 mg Q4H PRN ORAL Mild Pain (Pain Scale 1-3) 07/05/17 19:30 08/04/17 19:29 Acetaminophen (Tylenol) 650 mg Q4H PRN ORAL T>100.5 07/05/17 19:30 08/04/17 19:29 Apixaban (Eliquis) 2.5 mg BID ORAL 07/06/17 09:00 08/05/17 08:59 07/07/17 10:50 Bisacodyl (Dulcolax) 10 mg DAILYPRN PRN RECTAL Constipation 07/05/17 19:45 08/04/17 19:29 Cefepime HCl 500 mg/Dextrose 55 ml @ 110 mls/hr Q24H IVPB 07/06/17 21:00 07/13/17 20:59 07/06/17 22:04 Chlorhexidine Gluconate (Tiny-Hex 2%) 1 applic DAILY@2000 TOPIC 07/06/17 20:00 08/05/17 19:59 07/06/17 22:04 Dextrose (Dextrose 50%) STAT PRN IV Hypoglycemia 07/05/17 19:30 08/04/17 19:29 Digoxin (Lanoxin) 0.125 mg QOD ORAL 07/08/17 09:00 08/05/17 08:59 Docusate Sodium (Colace) 100 mg EVERY 12 HOURS ORAL 07/05/17 21:00 08/04/17 20:59 07/07/17 10:50 Insulin Aspart (NovoLOG) BEFORE MEALS AND HS SUBQ 07/05/17 21:00 08/04/17 20:59 07/07/17 15:03 Levothyroxine Sodium (Synthroid) 50 mcg DAILY@0630 ORAL 07/07/17 06:30 08/06/17 06:29 07/07/17 06:34 Metoprolol Succinate (Toprol XL) 25 mg DAILY ORAL 07/06/17 09:00 08/05/17 08:59 Midodrine (Pro-Amatine) 10 mg THREE TIMES A DAY ORAL 07/06/17 18:00 08/05/17 17:59 07/07/17 14:59 Ondansetron HCl (Zofran) 4 mg Q6H PRN IVP Nausea & Vomiting 07/05/17 19:30 08/04/17 19:29 Pantoprazole (Protonix) 40 mg DAILY ORAL 07/06/17 09:00 08/05/17 08:59 07/07/17 10:49 Polyethylene Glycol (Miralax) 17 gm DAILYPRN PRN ORAL Constipation 07/05/17 19:30 08/04/17 19:29 Vancomycin HCl (Vanco rx to dose) 1 ea DAILY PRN MISC Per rx protocol 07/05/17 19:45 08/04/17 19:44 Allergies: Coded Allergies: No Known Allergies (Verified , 04/24/10) ROS Limited/Unobtainable: Yes Subjective 76 YO M admitted with hypotension and sepsis. Cover for Int Med-Dr Rangel Objective Last Vital Signs Date Time Temp Pulse Resp B/P (MAP) Pulse Ox O2 Delivery O2 Flow Rate FiO2 07/07/17 16:00 97.5 74 18 99/49 95 Room Air General Appearance: WD/WN, no apparent distress EENT: PERRL/EOMI, normal ENT inspection Neck: non-tender, normal alignment, supple, normal inspection Cardiovascular: normal peripheral pulses, normal rate, regular rhythm, no gallop/murmur, no JVD Respiratory/Chest: chest wall non-tender, lungs clear, normal breath sounds, no respiratory distress, no accessory muscle use Abdomen: normal bowel sounds, non tender, soft, no organomegaly, no mass Extremities: normal range of motion Neurologic: manager acute II-XII grossly normal Skin: normal pigmentation, warm/dry Laboratory Tests Test 07/06/17 19:40 07/07/17 05:20 Random Vancomycin Level 11.6 ug/mL White Blood Count 4.9 K/UL (4.8-10.8) Red Blood Count 2.76 M/UL (4.70-6.10) L Hemoglobin 9.2 G/DL (14.2-18.0) L Hematocrit 28.6 % (42.0-52.0) L Mean Corpuscular Volume 104 FL (80-99) H Mean Corpuscular Hemoglobin 33.5 PG (27.0-31.0) H Mean Corpuscular Hemoglobin Concent 32.3 G/DL (32.0-36.0) Red Cell Distribution Width 15.3 % (11.6-14.8) H Platelet Count 174 K/UL (150-450) Mean Platelet Volume 6.8 FL (6.5-10.1) Neutrophils (%) (Auto) 63.8 % (45.0-75.0) Lymphocytes (%) (Auto) 16.1 % (20.0-45.0) L Monocytes (%) (Auto) 17.5 % (1.0-10.0) H Eosinophils (%) (Auto) 1.6 % (0.0-3.0) Basophils (%) (Auto) 1.1 % (0.0-2.0) Sodium Level 145 MMOL/L (136-145) Potassium Level 3.9 MMOL/L (3.5-5.1) Chloride Level 105 MMOL/L (98-107) Carbon Dioxide Level 30 MMOL/L (21-32) Anion Gap 10 mmol/L (5-15) Blood Urea Nitrogen 17 mg/dL (7-18) Creatinine 2.6 MG/DL (0.55-1.30) H Estimat Glomerular Filtration Rate mL/min (>60) Glucose Level 95 MG/DL (74-106) Hemoglobin A1c 6.8 % (4.3-6.0) H Uric Acid 2.9 MG/DL (2.6-7.2) Calcium Level 8.1 MG/DL (8.5-10.1) L Phosphorus Level 2.5 MG/DL (2.5-4.9) Magnesium Level 1.7 MG/DL (1.8-2.4) L Iron Level 71 ug/dL (50-175) Total Iron Binding Capacity 121 ug/dL (250-450) L Percent Iron Saturation 59 % (15-50) H Unsaturated Iron Binding 50 ug/dL (112-346) L Ferritin > 2000 NG/ML (8-388) H Total Bilirubin 2.0 MG/DL (0.2-1.0) H Direct Bilirubin 0.9 MG/DL (0.0-0.3) H Gamma Glutamyl Transpeptidase 47 U/L (5-85) Aspartate Amino Transf (AST/SGOT) 21 U/L (15-37) Alanine Aminotransferase (ALT/SGPT) < 6 U/L (12-78) L Alkaline Phosphatase 50 U/L (46-116) Total Creatine Kinase 43 U/L (26-308) Troponin I 0.102 ng/mL (0.000-0.056) C-Reactive Protein, Quantitative 5.7 mg/dL (0.00-0.90) H Total Protein 5.9 G/DL (6.4-8.2) L Albumin 2.3 G/DL (3.4-5.0) L Globulin 3.6 g/dL Albumin/Globulin Ratio 0.6 (1.0-2.7) L Vitamin B12 Level 1069 PG/ML (193-986) H Folate 10.6 NG/ML (8.6-58.9) Digoxin Level 2.0 NG/ML (0.5-2.0) Microbiology Date/Time Source Procedure Growth Status 07/05/17 09:30 Nasal Nares MRSA Culture - Final NO METHICILLIN RESISTANT STAPH AUREUS... Complete Intake and Output 07/07/17 07/08/17 19:00 07:00 # Bowel Movements 2 Assessment/Plan Assessment/Plan ASSESSMENT: 1. Hypotension, possibly due to the sepsis. 2. End-stage renal disease, on hemodialysis. 3. Anemia of chronic kidney disease. 4. Hypothyroidism. 5. Acute atrial fibrillation. 6. Coronary artery disease. 7. Diabetes type 2. 8. Right anterior mims laceration. PLAN: Admit the patient to telemetry. We will follow up with Dr. Faisal Ortega from cardiology and Dr. Marcus Vance from nephrology. We will monitor laboratory. IV hydration was given already boluses. We will follow up with the laboratory in the morning. Broad-spectrum antibiotics of vancomycin and cefepime. We will follow up with culture. We will Accu-Chek with sliding scale. Resume home medications. We will consider to get PT and OT evaluation in the morning. Code status is full code. DVT prophylaxis with Eliquis. Last Hemodialysis 07/06/17 per nephrology JOSEPH CORRAL Jul 07, 2017 17:08
[2017-07-07 20:00] VITALS: BP 127/63
[2017-07-07] MEDS: Dyna-Hex 2% Top Sol 2oz TOPIC SCH (22:00)
[2017-07-07] MEDS: Cefepime 500mg in D5W 55ml IVPB SCH (22:00)
[2017-07-08] VITALS: BP 108/65
[2017-07-08 04:00] VITALS: BP 125/76
[2017-07-08] MEDS: NovoLOG Insulin Flexpen SUBQ SCH ×4 (06:30→20:25)
[2017-07-08 08:00] VITALS: BP 146/67
[2017-07-08] MEDS: Docusate 100mg cap ORAL SCH ×2 (09:00→20:25)
[2017-07-08] MEDS: Digoxin 0.125mg tab ORAL SCH (09:52)
[2017-07-08] MEDS: Eliquis 2.5mg tablet ORAL SCH ×2 (09:53→17:48)
[2017-07-08] MEDS: Midodrine 10mg tab ORAL SCH ×3 (09:53→18:24)
[2017-07-08] MEDS: Metoprolol Succinate XL 25mg tab ORAL SCH (09:53)
[2017-07-08 10:25] LABS: BASOPHILS % (AUTO) 1.4 % (0.0-2.0); EOSINOPHILS % (AUTO) 2.2 % (0.0-3.0); MEAN CORPUSCULAR HEMOGLOBIN 32.8 PG (27.0-31.0); MEAN CORPUSCULAR HGB CONC 31.9 G/DL (32.0-36.0); MEAN CORPUSCULAR VOLUME 103 FL (80-99); MEAN PLATELET VOLUME 6.7 FL (6.5-10.1); MONOCYTES % (AUTO) 18.2 % (1.0-10.0); NEUTROPHILS % (AUTO) 63.2 % (45.0-75.0); PLATELET COUNT 185 K/UL (150-450); RED BLOOD COUNT 2.82 M/UL (4.70-6.10); RED CELL DISTRIBUTION WIDTH 15.2 % (11.6-14.8); WHITE BLOOD COUNT 5.4 K/UL (4.8-10.8)
[2017-07-08 10:41] LABS: ALANINE AMINOTRANSFERASE < 6 U/L (12-78); ALBUMIN/GLOBULIN RATIO 0.6 (1.0-2.7); ANION GAP 11 mmol/L (5-15); ASPARTATE AMINO TRANSFERASE 19 U/L (15-37); CALCIUM 8.4 MG/DL (8.5-10.1); CARBON DIOXIDE 27 MMOL/L (21-32); CHLORIDE 105 MMOL/L (98-107); CREATININE 3.5 MG/DL (0.55-1.30); MAGNESIUM 2.3 MG/DL (1.8-2.4); PHOSPHORUS 3.5 MG/DL (2.5-4.9); SODIUM 143 MMOL/L (136-145); TOTAL PROTEIN 5.9 G/DL (6.4-8.2)
[2017-07-08 10:49] LABS: BILIRUBIN,DIRECT 1.1 MG/DL (0.0-0.3)
--- NOTE | 2017-07-08 11:26 | Wound Care Consultation ---
Wound Assessment Wound Assessment #1: Wound Number: 1 Wound Present on Admission: Yes New Wound: No Status Change of Wound: No Wound Location Body Site Modif: right Wound Location Body Site: arm Wound Type: other - open wound etiology unknown Rupert Test: Does not Rupert Wound Thickness: Full Thickness Wound Length: 1.0 Wound Width: 1.0 Wound Depth: 0.2 Percent of Wound [place]/Red: 100 Wound Drainage Description: Serosanguineous Wound Drainage Amount: Scant Wound Drainage Odor: None/Absent Tissue Surrounding Wound: Erythemic Wound General Appearance: Reddened Wound Assessment #2: Wound Number: 2 Wound Present on Admission: Yes New Wound: No Status Change of Wound: No Wound Location Body Site Modif: right, lower Wound Location Body Site: leg Wound Type: other - laceration dry, noted scab formation present, Rupert Test: Does not Rupert Wound Length: 15.0 Wound Width: 1.0 Percent of Wound Black/Brown: 100 - scattered scabs to site. Wound Drainage Amount: None Wound Drainage Odor: None/Absent Tissue Surrounding Wound: dry thick brown scabs Wound Comment #1 right arm open wound, etiology unknown. #2 right lateral lower leg resolving linear laceration. #3 right arm surgical site with odilia- follow up with md for surgical sites and further eval #4 left and right arm discoloration. Recommendation -Local wound care as ordered, -Turn and reposition. -Keep clean and dry. -Optimize nutrition. -Assess and notify MD for any further changes of condition to skin. HERI BYRD Jul 08, 2017 11:26
[2017-07-08 12:00] VITALS: BP 112/42
--- NOTE | 2017-07-08 15:06 | Nephrology Progress Note ---
Assessment/Plan Problem List: (1) CKD (chronic kidney disease) requiring chronic dialysis (2) Hypotension (3) Atrial fibrillation Assessment - End-stage renal disease, on hemodialysis. previously on PD, has right-side chest wall PermCath placement - Hypotension, possibly due to the sepsis. improved - Anemia of chronic kidney disease. - Hypothyroidism. - Acute atrial fibrillation. - Coronary artery disease. - Diabetes type 2. Plan Plan: dialysed 07/06 next 07/09 Antibiotics Midodrine tid check cortisol level prelim echo reported 65% ej fx mag supplement per orders Subjective ROS Limited/Unobtainable: No Constitutional: Reports: malaise, weakness Objective Objective Last 24 Hour Vital Signs Date Time Temp Pulse Resp B/P (MAP) Pulse Ox O2 Delivery O2 Flow Rate FiO2 07/08/17 12:00 96.4 78 19 112/42 96 Room Air 07/08/17 12:00 97 07/08/17 09:53 83 125/76 07/08/17 09:52 83 07/08/17 08:00 83 07/08/17 08:00 97.9 58 20 146/67 96 Room Air 07/08/17 05:52 83 07/08/17 04:00 97.0 66 20 125/76 95 07/08/17 00:00 73 07/08/17 00:00 97.5 76 16 108/65 95 07/07/17 20:00 76 07/07/17 20:00 97.5 109 16 127/63 95 Room Air 07/07/17 16:00 97.5 74 18 99/49 95 Room Air 07/07/17 16:00 95 Intake and Output 07/08/17 07/09/17 19:00 07:00 # Bowel Movements 1 Laboratory Tests 07/08/17 10:00: White Blood Count 5.4, Red Blood Count 2.82L, Hemoglobin 9.3L, Hematocrit 29.1L , Mean Corpuscular Volume 103H, Mean Corpuscular Hemoglobin 32.8H, Mean Corpuscular Hemoglobin Concent 31.9L, Red Cell Distribution Width 15.2H, Platelet Count 185, Mean Platelet Volume 6.7, Neutrophils (%) (Auto) 63.2, Lymphocytes (%) (Auto) 15.0L, Monocytes (%) (Auto) 18.2H, Eosinophils (%) (Auto ) 2.2, Basophils (%) (Auto) 1.4, Sodium Level 143, Potassium Level 4.0, Chloride Level 105, Carbon Dioxide Level 27, Anion Gap 11, Blood Urea Nitrogen 25H, Creatinine 3.5H, Estimat Glomerular Filtration Rate , Glucose Level 112H, Calcium Level 8.4L, Phosphorus Level 3.5, Magnesium Level 2.3, Total Bilirubin 2.0H, Direct Bilirubin 1.1H, Aspartate Amino Transf (AST/SGOT) 19, Alanine Aminotransferase (ALT/SGPT) < 6L, Alkaline Phosphatase 50, Troponin I 0.097H, Total Protein 5.9L, Albumin 2.3L, Globulin 3.6, Albumin/Globulin Ratio 0.6L, Cortisol [Pending] Height (Feet): 5 Height (Inches): 4.00 Weight (Pounds): 150 General Appearance: no apparent distress, lethargic Cardiovascular: normal rate Respiratory/Chest: decreased breath sounds Abdomen: soft, distended JULIO CESAR LONGO Jul 08, 2017 15:06
[2017-07-08 16:00] VITALS: BP 111/86
--- NOTE | 2017-07-08 18:58 | Internal Med Progress Note ---
Subjective Date of Service: Jul 08, 2017 Physician Name Corral,Joseph Attending Physician Toño Rangel MD Current Medications Medications (Trade) Dose Ordered Sig/Dana Route PRN Reason Start Time Stop Time Status Last Admin Dose Admin Acetaminophen (Tylenol) 650 mg Q4H PRN ORAL Mild Pain (Pain Scale 1-3) 07/05/17 19:30 08/04/17 19:29 Acetaminophen (Tylenol) 650 mg Q4H PRN ORAL T>100.5 07/05/17 19:30 08/04/17 19:29 Apixaban (Eliquis) 2.5 mg BID ORAL 07/06/17 09:00 08/05/17 08:59 07/08/17 17:48 Bisacodyl (Dulcolax) 10 mg DAILYPRN PRN RECTAL Constipation 07/05/17 19:45 08/04/17 19:29 Cefepime HCl 500 mg/Dextrose 55 ml @ 110 mls/hr Q24H IVPB 07/06/17 21:00 07/13/17 20:59 07/07/17 22:00 Chlorhexidine Gluconate (Tiny-Hex 2%) 1 applic DAILY@2000 TOPIC 07/06/17 20:00 08/05/17 19:59 07/07/17 22:00 Dextrose (Dextrose 50%) STAT PRN IV Hypoglycemia 07/05/17 19:30 08/04/17 19:29 Digoxin (Lanoxin) 0.125 mg QOD ORAL 07/08/17 09:00 08/05/17 08:59 07/08/17 09:52 Docusate Sodium (Colace) 100 mg EVERY 12 HOURS ORAL 07/05/17 21:00 08/04/17 20:59 07/07/17 22:00 Insulin Aspart (NovoLOG) BEFORE MEALS AND HS SUBQ 07/05/17 21:00 08/04/17 20:59 07/07/17 17:27 Levothyroxine Sodium (Synthroid) 50 mcg DAILY@0630 ORAL 07/07/17 06:30 08/06/17 06:29 07/08/17 06:56 Metoprolol Succinate (Toprol XL) 25 mg DAILY ORAL 07/06/17 09:00 08/05/17 08:59 07/08/17 09:53 Midodrine (Pro-Amatine) 10 mg THREE TIMES A DAY ORAL 07/06/17 18:00 08/05/17 17:59 07/08/17 18:24 Ondansetron HCl (Zofran) 4 mg Q6H PRN IVP Nausea & Vomiting 07/05/17 19:30 08/04/17 19:29 Pantoprazole (Protonix) 40 mg DAILY ORAL 07/06/17 09:00 08/05/17 08:59 07/08/17 09:52 Polyethylene Glycol (Miralax) 17 gm DAILYPRN PRN ORAL Constipation 07/05/17 19:30 08/04/17 19:29 Vancomycin HCl (Vanco rx to dose) 1 ea DAILY PRN MISC Per rx protocol 07/05/17 19:45 08/04/17 19:44 Allergies: Coded Allergies: No Known Allergies (Verified , 04/24/10) ROS Limited/Unobtainable: Yes Subjective 76 YO M admitted with hypotension and sepsis. Cover for Int Peña-Dr Rangel Objective Last Vital Signs Date Time Temp Pulse Resp B/P (MAP) Pulse Ox O2 Delivery O2 Flow Rate FiO2 07/08/17 16:00 62 07/08/17 16:00 97.7 19 111/86 97 Room Air Laboratory Tests Test 07/08/17 10:00 White Blood Count 5.4 K/UL (4.8-10.8) Red Blood Count 2.82 M/UL (4.70-6.10) L Hemoglobin 9.3 G/DL (14.2-18.0) L Hematocrit 29.1 % (42.0-52.0) L Mean Corpuscular Volume 103 FL (80-99) H Mean Corpuscular Hemoglobin 32.8 PG (27.0-31.0) H Mean Corpuscular Hemoglobin Concent 31.9 G/DL (32.0-36.0) L Red Cell Distribution Width 15.2 % (11.6-14.8) H Platelet Count 185 K/UL (150-450) Mean Platelet Volume 6.7 FL (6.5-10.1) Neutrophils (%) (Auto) 63.2 % (45.0-75.0) Lymphocytes (%) (Auto) 15.0 % (20.0-45.0) L Monocytes (%) (Auto) 18.2 % (1.0-10.0) H Eosinophils (%) (Auto) 2.2 % (0.0-3.0) Basophils (%) (Auto) 1.4 % (0.0-2.0) Sodium Level 143 MMOL/L (136-145) Potassium Level 4.0 MMOL/L (3.5-5.1) Chloride Level 105 MMOL/L (98-107) Carbon Dioxide Level 27 MMOL/L (21-32) Anion Gap 11 mmol/L (5-15) Blood Urea Nitrogen 25 mg/dL (7-18) H Creatinine 3.5 MG/DL (0.55-1.30) H Estimat Glomerular Filtration Rate mL/min (>60) Glucose Level 112 MG/DL (74-106) H Calcium Level 8.4 MG/DL (8.5-10.1) L Phosphorus Level 3.5 MG/DL (2.5-4.9) Magnesium Level 2.3 MG/DL (1.8-2.4) Total Bilirubin 2.0 MG/DL (0.2-1.0) H Direct Bilirubin 1.1 MG/DL (0.0-0.3) H Aspartate Amino Transf (AST/SGOT) 19 U/L (15-37) Alanine Aminotransferase (ALT/SGPT) < 6 U/L (12-78) L Alkaline Phosphatase 50 U/L (46-116) Troponin I 0.097 ng/mL (0.000-0.056) Total Protein 5.9 G/DL (6.4-8.2) L Albumin 2.3 G/DL (3.4-5.0) L Globulin 3.6 g/dL Albumin/Globulin Ratio 0.6 (1.0-2.7) L Cortisol Pending Intake and Output 07/08/17 07/09/17 19:00 07:00 # Bowel Movements 1 Objective General Appearance: WD/WN, no apparent distress EENT: PERRL/EOMI, normal ENT inspection Neck: non-tender, normal alignment, supple, normal inspection Cardiovascular: normal peripheral pulses, normal rate, regular rhythm, no gallop/murmur, no JVD Respiratory/Chest: chest wall non-tender, lungs clear, normal breath sounds, no respiratory distress, no accessory muscle use Abdomen: normal bowel sounds, non tender, soft, no organomegaly, no mass Extremities: normal range of motion Neurologic: animal biologist II-XII grossly normal Skin: normal pigmentation, warm/dry Assessment/Plan Assessment/Plan ASSESSMENT: 1. Hypotension, possibly due to the sepsis.Continue Cefepime 2. End-stage renal disease, on hemodialysis.Next dialysis 07/09/17-see Nephrology note. 3. Anemia of chronic kidney disease. 4. Hypothyroidism. 5. Acute atrial fibrillation. 6. Coronary artery disease. 7. Diabetes type 2. 8. Right anterior mims laceration. PLAN: Admit the patient to telemetry. We will follow up with Dr. Faisal Ortega from cardiology and Dr. Marcus Vance from nephrology. We will monitor laboratory. IV hydration was given already boluses. We will follow up with the laboratory in the morning. Broad-spectrum antibiotics of vancomycin and cefepime. We will follow up with culture. We will Accu-Chek with sliding scale. Resume home medications. We will consider to get PT and OT evaluation in the morning. Code status is full code. DVT prophylaxis with Eliquis. Last Hemodialysis 07/06/17 per nephrology JOSEPH CORRAL Jul 08, 2017 18:58
[2017-07-08 20:15] VITALS: BP 110/64
[2017-07-08] MEDS: Dyna-Hex 2% Top Sol 2oz TOPIC SCH (20:25)
[2017-07-08] MEDS: Cefepime 500mg in D5W 55ml IVPB SCH (22:00)
[2017-07-09] VITALS (7 sets, daily range): BP systolic 99–133; BP diastolic 58–66
[2017-07-09] MEDS: NovoLOG Insulin Flexpen SUBQ SCH ×4 (06:30→20:58)
[2017-07-09] MEDS: Metoprolol Succinate XL 25mg tab ORAL SCH (09:00)
[2017-07-09 09:19] LABS: BASOPHILS % (AUTO) 1.7 % (0.0-2.0); EOSINOPHILS % (AUTO) 2.1 % (0.0-3.0); LYMPHOCYTES % (AUTO) 19.4 % (20.0-45.0); MEAN CORPUSCULAR HEMOGLOBIN 32.8 PG (27.0-31.0); MEAN CORPUSCULAR HGB CONC 31.4 G/DL (32.0-36.0); MEAN CORPUSCULAR VOLUME 105 FL (80-99); MONOCYTES % (AUTO) 16.7 % (1.0-10.0); NEUTROPHILS % (AUTO) 60.1 % (45.0-75.0); PLATELET COUNT 189 K/UL (150-450); RED BLOOD COUNT 2.98 M/UL (4.70-6.10); RED CELL DISTRIBUTION WIDTH 15.2 % (11.6-14.8); WHITE BLOOD COUNT 5.5 K/UL (4.8-10.8)
[2017-07-09] MEDS: Eliquis 2.5mg tablet ORAL SCH ×2 (09:24→17:35)
[2017-07-09] MEDS: Docusate 100mg cap ORAL SCH ×2 (09:24→20:58)
[2017-07-09 09:30] LABS: ANION GAP 13 mmol/L (5-15); CALCIUM 8.7 MG/DL (8.5-10.1); CARBON DIOXIDE 24 MMOL/L (21-32); CHLORIDE 104 MMOL/L (98-107); POTASSIUM 4.6 MMOL/L (3.5-5.1); SODIUM 141 MMOL/L (136-145)
[2017-07-09] MEDS: Midodrine 10mg tab ORAL SCH ×3 (10:08→17:36)
--- NOTE | 2017-07-09 10:09 | Cardiology Progress Note ---
Assessment/Plan Assessment/Plan 1. Hypotension. resolved 2. Atrial fibrillation, likely permanent. Ventricular response appears to be controlled. 3. End-stage renal disease, on hemodialysis 4. Low tsh 5. 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 and evaluation dc plans per dr allen Subjective ROS Limited/Unobtainable: No Cardiovascular: Denies: chest pain, lightheadedness, palpitations Respiratory: Denies: shortness of breath Gastrointestinal/Abdominal: Denies: abdominal pain Subjective more responsive adn verbal to day Objective Last 24 Hour Vital Signs Date Time Temp Pulse Resp B/P (MAP) Pulse Ox O2 Delivery O2 Flow Rate FiO2 07/09/17 04:10 97.0 75 20 99/59 97 Room Air 07/09/17 04:00 70 07/09/17 00:27 97.5 92 20 133/66 96 Room Air 07/09/17 00:00 79 07/08/17 20:15 97.0 72 20 110/64 95 07/08/17 20:00 70 07/08/17 16:00 62 07/08/17 16:00 97.7 73 19 111/86 97 Room Air 07/08/17 12:00 96.4 78 19 112/42 96 Room Air 07/08/17 12:00 97 General Appearance: no apparent distress, alert Neck: supple Cardiovascular: normal rate, regular rhythm Respiratory/Chest: lungs clear, normal breath sounds Abdomen: normal bowel sounds, non tender, soft Extremities: no swelling Laboratory Tests Test 07/09/17 08:50 White Blood Count 5.5 K/UL (4.8-10.8) Red Blood Count 2.98 M/UL (4.70-6.10) L Hemoglobin 9.8 G/DL (14.2-18.0) L Hematocrit 31.2 % (42.0-52.0) L Mean Corpuscular Volume 105 FL (80-99) H Mean Corpuscular Hemoglobin 32.8 PG (27.0-31.0) H Mean Corpuscular Hemoglobin Concent 31.4 G/DL (32.0-36.0) L Red Cell Distribution Width 15.2 % (11.6-14.8) H Platelet Count 189 K/UL (150-450) Mean Platelet Volume 7.0 FL (6.5-10.1) Neutrophils (%) (Auto) 60.1 % (45.0-75.0) Lymphocytes (%) (Auto) 19.4 % (20.0-45.0) L Monocytes (%) (Auto) 16.7 % (1.0-10.0) H Eosinophils (%) (Auto) 2.1 % (0.0-3.0) Basophils (%) (Auto) 1.7 % (0.0-2.0) Sodium Level 141 MMOL/L (136-145) Potassium Level 4.6 MMOL/L (3.5-5.1) Chloride Level 104 MMOL/L (98-107) Carbon Dioxide Level 24 MMOL/L (21-32) Anion Gap 13 mmol/L (5-15) Blood Urea Nitrogen 34 mg/dL (7-18) H Creatinine 4.0 MG/DL (0.55-1.30) H Estimat Glomerular Filtration Rate mL/min (>60) Glucose Level 127 MG/DL (74-106) H Calcium Level 8.7 MG/DL (8.5-10.1) GRIFFIN ALMONTE Jul 09, 2017 10:09
--- NOTE | 2017-07-09 10:58 | Nephrology Progress Note ---
Assessment/Plan Problem List: (1) CKD (chronic kidney disease) requiring chronic dialysis (2) Hypotension (3) Atrial fibrillation Assessment - End-stage renal disease, on hemodialysis. previously on PD, has right-side chest wall PermCath placement - Hypotension, possibly due to the sepsis. improved - Anemia of chronic kidney disease. - Hypothyroidism. - Acute atrial fibrillation. - Coronary artery disease. - Diabetes type 2. Plan Plan: start low dose steroid due to low cortisol level dialysed 07/06 next 07/09 Antibiotics Midodrine tid prelim echo reported 65% ej fx mag supplement per orders Subjective ROS Limited/Unobtainable: No Constitutional: Reports: malaise Objective Objective Last 24 Hour Vital Signs Date Time Temp Pulse Resp B/P (MAP) Pulse Ox O2 Delivery O2 Flow Rate FiO2 07/09/17 09:00 77 109/58 07/09/17 04:10 97.0 75 20 99/59 97 Room Air 07/09/17 04:00 70 07/09/17 00:27 97.5 92 20 133/66 96 Room Air 07/09/17 00:00 79 07/08/17 20:15 97.0 72 20 110/64 95 07/08/17 20:00 70 07/08/17 16:00 62 07/08/17 16:00 97.7 73 19 111/86 97 Room Air 07/08/17 12:00 96.4 78 19 112/42 96 Room Air 07/08/17 12:00 97 Laboratory Tests 07/09/17 08:50: White Blood Count 5.5, Red Blood Count 2.98L, Hemoglobin 9.8L, Hematocrit 31.2L , Mean Corpuscular Volume 105H, Mean Corpuscular Hemoglobin 32.8H, Mean Corpuscular Hemoglobin Concent 31.4L, Red Cell Distribution Width 15.2H, Platelet Count 189, Mean Platelet Volume 7.0, Neutrophils (%) (Auto) 60.1, Lymphocytes (%) (Auto) 19.4L, Monocytes (%) (Auto) 16.7H, Eosinophils (%) (Auto ) 2.1, Basophils (%) (Auto) 1.7, Sodium Level 141, Potassium Level 4.6, Chloride Level 104, Carbon Dioxide Level 24, Anion Gap 13, Blood Urea Nitrogen 34H, Creatinine 4.0H, Estimat Glomerular Filtration Rate , Glucose Level 127H, Calcium Level 8.7 Height (Feet): 5 Height (Inches): 4.00 Weight (Pounds): 150 General Appearance: no apparent distress Respiratory/Chest: decreased breath sounds Abdomen: soft Objective PE not changed JULIO CESAR LONGO Jul 09, 2017 10:58
[2017-07-09] MEDS ORDERED: Hydrocortisone 100mg Inj IV ONE (11:00)
--- NOTE | 2017-07-09 18:13 | Internal Med Progress Note ---
Subjective Date of Service: Jul 09, 2017 Physician Name Corral,Joseph Attending Physician Toño Rangel MD Current Medications Medications (Trade) Dose Ordered Sig/Dana Route PRN Reason Start Time Stop Time Status Last Admin Dose Admin Acetaminophen (Tylenol) 650 mg Q4H PRN ORAL Mild Pain (Pain Scale 1-3) 07/05/17 19:30 08/04/17 19:29 Acetaminophen (Tylenol) 650 mg Q4H PRN ORAL T>100.5 07/05/17 19:30 08/04/17 19:29 Apixaban (Eliquis) 2.5 mg BID ORAL 07/06/17 09:00 08/05/17 08:59 07/09/17 17:35 Bisacodyl (Dulcolax) 10 mg DAILYPRN PRN RECTAL Constipation 07/05/17 19:45 08/04/17 19:29 Cefepime HCl 500 mg/Dextrose 55 ml @ 110 mls/hr Q24H IVPB 07/06/17 21:00 07/13/17 20:59 07/08/17 22:00 Chlorhexidine Gluconate (Tiny-Hex 2%) 1 applic DAILY@2000 TOPIC 07/06/17 20:00 08/05/17 19:59 07/08/17 20:25 Dextrose (Dextrose 50%) STAT PRN IV Hypoglycemia 07/05/17 19:30 08/04/17 19:29 Digoxin (Lanoxin) 0.125 mg QOD ORAL 07/08/17 09:00 08/05/17 08:59 07/08/17 09:52 Docusate Sodium (Colace) 100 mg EVERY 12 HOURS ORAL 07/05/17 21:00 08/04/17 20:59 07/09/17 09:24 Hydrocortisone (Cortef) 25 mg DAILY@1400 ORAL 07/09/17 14:00 08/08/17 13:59 07/09/17 13:44 Hydrocortisone (Cortef) 50 mg DAILY@0700 ORAL 07/10/17 07:00 08/09/17 06:59 Insulin Aspart (NovoLOG) BEFORE MEALS AND HS SUBQ 07/05/17 21:00 08/04/17 20:59 07/09/17 16:17 Levothyroxine Sodium (Synthroid) 50 mcg DAILY@0630 ORAL 07/07/17 06:30 08/06/17 06:29 07/09/17 06:55 Metoprolol Succinate (Toprol XL) 25 mg DAILY ORAL 07/06/17 09:00 08/05/17 08:59 07/08/17 09:53 Midodrine (Pro-Amatine) 10 mg THREE TIMES A DAY ORAL 07/09/17 13:00 08/08/17 12:59 07/09/17 17:36 Ondansetron HCl (Zofran) 4 mg Q6H PRN IVP Nausea & Vomiting 07/05/17 19:30 08/04/17 19:29 Pantoprazole (Protonix) 40 mg DAILY ORAL 07/06/17 09:00 08/05/17 08:59 07/09/17 09:25 Polyethylene Glycol (Miralax) 17 gm DAILYPRN PRN ORAL Constipation 07/05/17 19:30 08/04/17 19:29 Vancomycin HCl (Vanco rx to dose) 1 ea DAILY PRN MISC Per rx protocol 07/05/17 19:45 08/04/17 19:44 Allergies: Coded Allergies: No Known Allergies (Verified , 04/24/10) ROS Limited/Unobtainable: No Constitutional: Reports: no symptoms HEENT: Reports: no symptoms Cardiovascular: Reports: no symptoms Respiratory: Reports: no symptoms Gastrointestinal/Abdominal: Reports: no symptoms Genitourinary: Reports: no symptoms Neurologic/Psychiatric: Reports: no symptoms Subjective 76 YO M admitted with hypotension and sepsis. Cover for Int Peña-Dr Rangel. S/P hemodialysis today Objective Last Vital Signs Date Time Temp Pulse Resp B/P (MAP) Pulse Ox O2 Delivery O2 Flow Rate FiO2 07/09/17 16:00 97.3 73 19 106/66 97 Room Air Laboratory Tests Test 07/09/17 08:50 White Blood Count 5.5 K/UL (4.8-10.8) Red Blood Count 2.98 M/UL (4.70-6.10) L Hemoglobin 9.8 G/DL (14.2-18.0) L Hematocrit 31.2 % (42.0-52.0) L Mean Corpuscular Volume 105 FL (80-99) H Mean Corpuscular Hemoglobin 32.8 PG (27.0-31.0) H Mean Corpuscular Hemoglobin Concent 31.4 G/DL (32.0-36.0) L Red Cell Distribution Width 15.2 % (11.6-14.8) H Platelet Count 189 K/UL (150-450) Mean Platelet Volume 7.0 FL (6.5-10.1) Neutrophils (%) (Auto) 60.1 % (45.0-75.0) Lymphocytes (%) (Auto) 19.4 % (20.0-45.0) L Monocytes (%) (Auto) 16.7 % (1.0-10.0) H Eosinophils (%) (Auto) 2.1 % (0.0-3.0) Basophils (%) (Auto) 1.7 % (0.0-2.0) Sodium Level 141 MMOL/L (136-145) Potassium Level 4.6 MMOL/L (3.5-5.1) Chloride Level 104 MMOL/L (98-107) Carbon Dioxide Level 24 MMOL/L (21-32) Anion Gap 13 mmol/L (5-15) Blood Urea Nitrogen 34 mg/dL (7-18) H Creatinine 4.0 MG/DL (0.55-1.30) H Estimat Glomerular Filtration Rate mL/min (>60) Glucose Level 127 MG/DL (74-106) H Calcium Level 8.7 MG/DL (8.5-10.1) Intake and Output 07/09/17 07/10/17 19:00 07:00 # Voids 1 Objective General Appearance: WD/WN, no apparent distress EENT: PERRL/EOMI, normal ENT inspection Neck: non-tender, normal alignment, supple, normal inspection Cardiovascular: normal peripheral pulses, normal rate, regular rhythm, no gallop/murmur, no JVD Respiratory/Chest: chest wall non-tender, lungs clear, normal breath sounds, no respiratory distress, no accessory muscle use Abdomen: normal bowel sounds, non tender, soft, no organomegaly, no mass Extremities: normal range of motion Neurologic: vending machine filler II-XII grossly normal Skin: normal pigmentation, warm/dry Assessment/Plan Assessment/Plan ASSESSMENT: 1. Hypotension, possibly due to the sepsis.Continue Cefepime 2. End-stage renal disease, on hemodialysis. Dialysis on 07/09/17-see Nephrology note. 3. Anemia of chronic kidney disease. 4. Hypothyroidism. 5. Acute atrial fibrillation. 6. Coronary artery disease. 7. Diabetes type 2. 8. Right anterior mims laceration. PLAN: Admit the patient to telemetry. We will follow up with Dr. Faisal Ortega from cardiology and Dr. Marcus Vance from nephrology. We will monitor laboratory. IV hydration was given already boluses. We will follow up with the laboratory in the morning. Broad-spectrum antibiotics of vancomycin and cefepime. We will follow up with culture. We will Accu-Chek with sliding scale. Resume home medications. We will consider to get PT and OT evaluation in the morning. Code status is full code. DVT prophylaxis with Eliquis. Last Hemodialysis 07/06/17 per nephrology JOSEPH CORRAL Jul 09, 2017 18:13
[2017-07-09] MEDS: Cefepime 500mg in D5W 55ml IVPB SCH (20:58)
[2017-07-09] MEDS: Dyna-Hex 2% Top Sol 2oz TOPIC SCH (20:58)
[2017-07-10] VITALS (7 sets, daily range): BP systolic 74–112; BP diastolic 39–57
[2017-07-10] MEDS ORDERED: Vancomycin 1gm/D5W 275ml IVPB ONE ×2
[2017-07-10] MEDS: NovoLOG Insulin Flexpen SUBQ SCH ×4 (06:50→20:52)
[2017-07-10] MEDS: Midodrine 10mg tab ORAL SCH ×4 (08:13→18:00)
[2017-07-10] MEDS: Eliquis 2.5mg tablet ORAL SCH ×3 (08:13→18:00)
[2017-07-10] MEDS: Docusate 100mg cap ORAL SCH ×2 (08:14→20:51)
[2017-07-10] MEDS: Digoxin 0.125mg tab ORAL SCH (08:14)
[2017-07-10] MEDS: Metoprolol Succinate XL 25mg tab ORAL SCH (08:15)
[2017-07-10] MEDS ORDERED: MIRALAX17 G2 ORAL (10:00)
[2017-07-10] MEDS ORDERED: CORTEF10 MG ORAL (10:00)
[2017-07-10] MEDS ORDERED: ELIQUIS2.5 MG ORAL (10:00)
[2017-07-10] MEDS ORDERED: PRO-AMATINE10 MG ORAL (10:00)
[2017-07-10] MEDS ORDERED: ACETAMINOPHEN325 M1 ORAL (10:00)
[2017-07-10] MEDS ORDERED: SYNTHROID50 MCG ORAL (10:02)
--- NOTE | 2017-07-10 10:08 | Internal Med Progress Note ---
Subjective Physician Name Toño Rangel Attending Physician Toño Rangel MD Current Medications Medications (Trade) Dose Ordered Sig/Dana Route PRN Reason Start Time Stop Time Status Last Admin Dose Admin Acetaminophen (Tylenol) 650 mg Q4H PRN ORAL Mild Pain (Pain Scale 1-3) 07/05/17 19:30 08/04/17 19:29 Acetaminophen (Tylenol) 650 mg Q4H PRN ORAL T>100.5 07/05/17 19:30 08/04/17 19:29 Apixaban (Eliquis) 2.5 mg BID ORAL 07/06/17 09:00 08/05/17 08:59 07/10/17 08:13 Bisacodyl (Dulcolax) 10 mg DAILYPRN PRN RECTAL Constipation 07/05/17 19:45 08/04/17 19:29 Cefepime HCl 500 mg/Dextrose 55 ml @ 110 mls/hr Q24H IVPB 07/06/17 21:00 07/13/17 20:59 07/09/17 20:58 Chlorhexidine Gluconate (Tiny-Hex 2%) 1 applic DAILY@2000 TOPIC 07/06/17 20:00 08/05/17 19:59 07/09/17 20:58 Dextrose (Dextrose 50%) STAT PRN IV Hypoglycemia 07/05/17 19:30 08/04/17 19:29 Digoxin (Lanoxin) 0.125 mg QOD ORAL 07/08/17 09:00 08/05/17 08:59 07/10/17 08:14 Docusate Sodium (Colace) 100 mg EVERY 12 HOURS ORAL 07/05/17 21:00 08/04/17 20:59 07/10/17 08:14 Hydrocortisone (Cortef) 25 mg DAILY@1400 ORAL 07/09/17 14:00 08/08/17 13:59 07/09/17 13:44 Hydrocortisone (Cortef) 50 mg DAILY@0700 ORAL 07/10/17 07:00 08/09/17 06:59 07/10/17 06:48 Insulin Aspart (NovoLOG) BEFORE MEALS AND HS SUBQ 07/05/17 21:00 08/04/17 20:59 07/10/17 06:50 Levothyroxine Sodium (Synthroid) 50 mcg DAILY@0630 ORAL 07/07/17 06:30 08/06/17 06:29 07/10/17 06:48 Metoprolol Succinate (Toprol XL) 25 mg DAILY ORAL 07/06/17 09:00 08/05/17 08:59 07/08/17 09:53 Midodrine (Pro-Amatine) 10 mg THREE TIMES A DAY ORAL 07/09/17 13:00 08/08/17 12:59 07/10/17 08:13 Ondansetron HCl (Zofran) 4 mg Q6H PRN IVP Nausea & Vomiting 07/05/17 19:30 08/04/17 19:29 Pantoprazole (Protonix) 40 mg DAILY ORAL 07/06/17 09:00 08/05/17 08:59 07/10/17 08:13 Polyethylene Glycol (Miralax) 17 gm DAILYPRN PRN ORAL Constipation 07/05/17 19:30 08/04/17 19:29 Vancomycin HCl (Vanco rx to dose) 1 ea DAILY PRN MISC Per rx protocol 07/05/17 19:45 08/04/17 19:44 Allergies: Coded Allergies: No Known Allergies (Verified , 04/24/10) Subjective awake, responsive, open eyes, feeding tired, NAD Objective Last Vital Signs Date Time Temp Pulse Resp B/P (MAP) Pulse Ox O2 Delivery O2 Flow Rate FiO2 07/10/17 08:15 60 104/55 07/10/17 04:05 97.3 20 96 Room Air Laboratory Tests Test 07/09/17 18:00 Random Vancomycin Level 15.2 ug/mL Intake and Output 07/10/17 07/11/17 19:00 07:00 Intake Total 120 ml Balance 120 ml Intake Oral 120 ml Objective GENERAL: awake, responsive, in no acute distress. HEAD AND NECK: Pupils are equal and reactive to light. Extraocular movements are intact. Neck was supple. No JVD. LUNGS: Fair air entry. No wheezing or rales. Decreased in the bases. Poor inspiratory effort. CHEST: The patient has PermCath that was noted in the right side of chest wall. HEART: S1 and S2. Irregularly irregular. + OSWALDO. ABDOMEN: Soft, not distended. Peritoneal catheter was noted in the right lower quadrant. EXTREMITIES: No cyanosis, clubbing, or edema. The patient has a laceration with Steri-Strips on the right lower extremity and anterior mims as well as right upper extremity has an AV fistula. NEUROLOGIC: Cranial nerves II through XII grossly intact. That patient is moving all extremities slowly. Gait was not assessed due to the patient's status. Assessment/Plan Assessment/Plan 1. Hypotension, improving. 2. End-stage renal disease, on hemodialysis. 3. Anemia of chronic kidney disease. 4. Hypothyroidism. 5. Atrial fibrillation. 6. Coronary artery disease. 7. Diabetes type 2. 8. Right anterior mims laceration. PLAN: Dr. Faisal Ortega from cardiology Dr. Marcus Vance from nephrology. Monitor laboratory and cultures. Broad-spectrum antibiotics: vancomycin and cefepime. Accu-Chek with sliding scale. PT Mobility Code status is full code. DVT prophylaxis with Eliquis. NH Planning to [facility] Toño Rangel MD Jul 10, 2017 10:08
[2017-07-10 10:38] LABS: MEAN CORPUSCULAR HEMOGLOBIN 33.6 PG (27.0-31.0); MEAN CORPUSCULAR HGB CONC 32.1 G/DL (32.0-36.0); MEAN CORPUSCULAR VOLUME 104 FL (80-99); MEAN PLATELET VOLUME 6.6 FL (6.5-10.1); PLATELET COUNT 201 K/UL (150-450); RED BLOOD COUNT 2.77 M/UL (4.70-6.10); RED CELL DISTRIBUTION WIDTH 15.6 % (11.6-14.8); WHITE BLOOD COUNT 9.1 K/UL (4.8-10.8)
[2017-07-10 10:54] LABS: ANION GAP 11 mmol/L (5-15); CALCIUM 8.4 MG/DL (8.5-10.1); CARBON DIOXIDE 30 MMOL/L (21-32); CHLORIDE 102 MMOL/L (98-107); CREATININE 2.9 MG/DL (0.55-1.30); SODIUM 143 MMOL/L (136-145)
[2017-07-10 11:05] LABS: ANISOCYTOSIS 1+; BAND NEUTROPHILS % (MANUAL) 0 % (0-8); BASOPHILS % (MANUAL) 0 % (0-2); EOSINOPHILS % (MANUAL) 0 % (0-3); LYMPHOCYTES % (MANUAL) 8 % (20-45); NEUTROPHILS % (MANUAL) 86 % (45-75); PLATELET ESTIMATE ADEQUATE; PLATELET MORPHOLOGY NORMAL; TOTAL CELLS COUNTED 100
[2017-07-10 11:06] LABS: MACROCYTES 1+
--- NOTE | 2017-07-10 11:48 | Nephrology Progress Note ---
Assessment/Plan Problem List: (1) CKD (chronic kidney disease) requiring chronic dialysis (2) Hypotension (3) Atrial fibrillation Assessment - End-stage renal disease, on hemodialysis. previously on PD, has right-side chest wall PermCath placement - Hypotension, possibly due to the sepsis. improved - Anemia of chronic kidney disease. - Hypothyroidism. - Acute atrial fibrillation. - Coronary artery disease. - Diabetes type 2. Plan Plan: start low dose steroid due to low cortisol level dialysed 07/09 next 07/11 Antibiotics Midodrine tid prelim echo reported 65% ej fx mag supplement per orders Subjective ROS Limited/Unobtainable: No Constitutional: Reports: malaise Objective Objective Last 24 Hour Vital Signs Date Time Temp Pulse Resp B/P (MAP) Pulse Ox O2 Delivery O2 Flow Rate FiO2 07/10/17 08:15 60 104/55 07/10/17 08:14 60 07/10/17 04:05 97.3 95 20 104/56 96 Room Air 07/10/17 04:00 90 07/10/17 02:30 97.0 24 112/51 Room Air 07/10/17 02:30 Room Air 07/10/17 01:37 Room Air 07/10/17 00:00 91 07/10/17 00:00 114 20 74/39 Room Air 07/09/17 23:00 97.2 24 122/60 Room Air 07/09/17 20:00 72 07/09/17 20:00 97.7 81 20 108/60 99 Room Air 07/09/17 16:00 97.3 73 19 106/66 97 Room Air 07/09/17 16:00 72 07/09/17 12:00 81 07/09/17 12:00 97.8 81 18 114/63 97 Room Air Intake and Output 07/09/17 07/10/17 19:00 07:00 Intake Total 55 ml Output Total 1442 ml Balance -1387 ml IV Total 55 ml Output Hemodialysis UF 1442 ml # Voids 2 Laboratory Tests 07/09/17 18:00: Random Vancomycin Level 15.2 07/10/17 10:25: White Blood Count 9.1#, Red Blood Count 2.77L, Hemoglobin 9.3L, Hematocrit 28.9L , Mean Corpuscular Volume 104H, Mean Corpuscular Hemoglobin 33.6H, Mean Corpuscular Hemoglobin Concent 32.1, Red Cell Distribution Width 15.6H, Platelet Count 201, Mean Platelet Volume 6.6, Neutrophils (%) (Auto) , Lymphocytes (%) (Auto) , Monocytes (%) (Auto) , Eosinophils (%) (Auto) , Basophils (%) (Auto) , Differential Total Cells Counted 100, Neutrophils % ( Manual) 86H, Lymphocytes % (Manual) 8L, Monocytes % (Manual) 6, Eosinophils % ( Manual) 0, Basophils % (Manual) 0, Band Neutrophils 0, Platelet Estimate Adequate, Platelet Morphology Normal, Hypochromasia , Anisocytosis 1+, Macrocytosis 1+, Sodium Level 143, Potassium Level 4.0, Chloride Level 102, Carbon Dioxide Level 30, Anion Gap 11, Blood Urea Nitrogen 20H, Creatinine 2.9H , Estimat Glomerular Filtration Rate , Glucose Level 165H, Calcium Level 8.4L Height (Feet): 5 Height (Inches): 4.00 Weight (Pounds): 150 General Appearance: no apparent distress, lethargic Cardiovascular: tachycardia, arrhythmia Respiratory/Chest: decreased breath sounds Objective PE not changed JULIO CESAR LONGO Jul 10, 2017 11:48
--- NOTE | 2017-07-10 18:26 | Cardiology Progress Note ---
Assessment/Plan Assessment/Plan 1. Hypotension. resolved 2. Atrial fibrillation, likely permanent. Ventricular response appears to be controlled. 3. End-stage renal disease, on hemodialysis 4. Low tsh 5. sig MR trop min elevated still bellow threshold for mi by WHO criteria adn iof ? sig in light of renal insuf bp seem better on midodrine dig level is fine tele afib hr controlled need fu with primary long term care administrator [facility] for MR treatment and evaluation dc plans per dr allen Subjective ROS Limited/Unobtainable: Yes Subjective not communicative agian today Objective Last 24 Hour Vital Signs Date Time Temp Pulse Resp B/P (MAP) Pulse Ox O2 Delivery O2 Flow Rate FiO2 07/10/17 12:00 97.7 69 20 98/57 95 Room Air 07/10/17 08:15 60 104/55 07/10/17 08:14 60 07/10/17 08:00 97.5 60 20 104/55 91 Room Air 07/10/17 04:05 97.3 95 20 104/56 96 Room Air 07/10/17 04:00 90 07/10/17 02:30 97.0 24 112/51 Room Air 07/10/17 02:30 Room Air 07/10/17 01:37 Room Air 07/10/17 00:00 91 07/10/17 00:00 114 20 74/39 Room Air 07/09/17 23:00 97.2 24 122/60 Room Air 07/09/17 20:00 72 07/09/17 20:00 97.7 81 20 108/60 99 Room Air General Appearance: no apparent distress Neck: supple Cardiovascular: irregularly irregular Respiratory/Chest: lungs clear Abdomen: normal bowel sounds, non tender, soft Extremities: no swelling Intake and Output 07/09/17 07/10/17 19:00 07:00 Intake Total 55 ml Output Total 1442 ml Balance -1387 ml IV Total 55 ml Output Hemodialysis UF 1442 ml # Voids 2 Laboratory Tests Test 07/10/17 10:25 White Blood Count 9.1 K/UL (4.8-10.8) # Red Blood Count 2.77 M/UL (4.70-6.10) L Hemoglobin 9.3 G/DL (14.2-18.0) L Hematocrit 28.9 % (42.0-52.0) L Mean Corpuscular Volume 104 FL (80-99) H Mean Corpuscular Hemoglobin 33.6 PG (27.0-31.0) H Mean Corpuscular Hemoglobin Concent 32.1 G/DL (32.0-36.0) Red Cell Distribution Width 15.6 % (11.6-14.8) H Platelet Count 201 K/UL (150-450) Mean Platelet Volume 6.6 FL (6.5-10.1) Neutrophils (%) (Auto) % (45.0-75.0) Lymphocytes (%) (Auto) % (20.0-45.0) Monocytes (%) (Auto) % (1.0-10.0) Eosinophils (%) (Auto) % (0.0-3.0) Basophils (%) (Auto) % (0.0-2.0) Differential Total Cells Counted 100 Neutrophils % (Manual) 86 % (45-75) H Lymphocytes % (Manual) 8 % (20-45) L Monocytes % (Manual) 6 % (1-10) Eosinophils % (Manual) 0 % (0-3) Basophils % (Manual) 0 % (0-2) Band Neutrophils 0 % (0-8) Platelet Estimate Adequate Platelet Morphology Normal Hypochromasia Anisocytosis 1+ Macrocytosis 1+ Sodium Level 143 MMOL/L (136-145) Potassium Level 4.0 MMOL/L (3.5-5.1) Chloride Level 102 MMOL/L (98-107) Carbon Dioxide Level 30 MMOL/L (21-32) Anion Gap 11 mmol/L (5-15) Blood Urea Nitrogen 20 mg/dL (7-18) H Creatinine 2.9 MG/DL (0.55-1.30) H Estimat Glomerular Filtration Rate mL/min (>60) Glucose Level 165 MG/DL (74-106) H Calcium Level 8.4 MG/DL (8.5-10.1) GRIFFIN PEACOCK Jul 10, 2017 18:26
[2017-07-10] MEDS: Dyna-Hex 2% Top Sol 2oz TOPIC SCH (20:51)
[2017-07-10] MEDS: Cefepime 500mg in D5W 55ml IVPB SCH (22:47)
[2017-07-11] VITALS (7 sets, daily range): BP systolic 101–112; BP diastolic 50–67
[2017-07-11] MEDS: NovoLOG Insulin Flexpen SUBQ SCH ×4 (06:23→21:00)
--- NOTE | 2017-07-11 09:19 | Nephrology Progress Note ---
Assessment/Plan Problem List: (1) CKD (chronic kidney disease) requiring chronic dialysis (2) Hypotension (3) Atrial fibrillation Assessment - End-stage renal disease, on hemodialysis. previously on PD, has right-side chest wall PermCath placement - Hypotension, possibly due to the sepsis. improved - Anemia of chronic kidney disease. - Hypothyroidism. - Acute atrial fibrillation. - Coronary artery disease. - Diabetes type 2. Plan Plan: start low dose steroid due to low cortisol level dialysed 07/09 next 07/11 Antibiotics Midodrine tid prelim echo reported 65% ej fx mag supplement per orders Subjective ROS Limited/Unobtainable: No Constitutional: Reports: malaise Objective Objective Last 24 Hour Vital Signs Date Time Temp Pulse Resp B/P (MAP) Pulse Ox O2 Delivery O2 Flow Rate FiO2 07/11/17 04:19 97.6 74 18 112/61 98 Room Air 07/11/17 04:00 89 07/11/17 00:39 97.3 86 18 106/55 97 Room Air 07/11/17 00:00 73 07/10/17 20:32 98.1 88 18 100/45 90 Room Air 07/10/17 20:00 81 07/10/17 16:00 98.0 95 20 98/57 100 Room Air 07/10/17 15:28 75 07/10/17 12:00 97.7 69 20 98/57 95 Room Air 07/10/17 11:47 71 Intake and Output 07/10/17 07/11/17 19:00 07:00 Intake Total 120 ml 55 ml Balance 120 ml 55 ml Intake Oral 120 ml IV Total 55 ml Laboratory Tests 07/10/17 10:25: White Blood Count 9.1#, Red Blood Count 2.77L, Hemoglobin 9.3L, Hematocrit 28.9L , Mean Corpuscular Volume 104H, Mean Corpuscular Hemoglobin 33.6H, Mean Corpuscular Hemoglobin Concent 32.1, Red Cell Distribution Width 15.6H, Platelet Count 201, Mean Platelet Volume 6.6, Neutrophils (%) (Auto) , Lymphocytes (%) (Auto) , Monocytes (%) (Auto) , Eosinophils (%) (Auto) , Basophils (%) (Auto) , Differential Total Cells Counted 100, Neutrophils % ( Manual) 86H, Lymphocytes % (Manual) 8L, Monocytes % (Manual) 6, Eosinophils % ( Manual) 0, Basophils % (Manual) 0, Band Neutrophils 0, Platelet Estimate Adequate, Platelet Morphology Normal, Hypochromasia , Anisocytosis 1+, Macrocytosis 1+, Sodium Level 143, Potassium Level 4.0, Chloride Level 102, Carbon Dioxide Level 30, Anion Gap 11, Blood Urea Nitrogen 20H, Creatinine 2.9H , Estimat Glomerular Filtration Rate , Glucose Level 165H, Calcium Level 8.4L Height (Feet): 5 Height (Inches): 4.00 Weight (Pounds): 150 General Appearance: no apparent distress Cardiovascular: arrhythmia Respiratory/Chest: decreased breath sounds Abdomen: soft Objective PE not changed JULIO CESAR LONGO Jul 11, 2017 09:19
[2017-07-11] MEDS: Docusate 100mg cap ORAL SCH ×2 (09:51→21:00)
[2017-07-11] MEDS: Metoprolol Succinate XL 25mg tab ORAL SCH (09:51)
[2017-07-11] MEDS: Eliquis 2.5mg tablet ORAL SCH ×2 (09:51→17:23)
[2017-07-11] MEDS: Midodrine 10mg tab ORAL SCH ×4 (09:51→18:00)
--- NOTE | 2017-07-11 14:45 | Internal Med Progress Note ---
Subjective Physician Name Toño Rangel Attending Physician Toño Rangel MD Current Medications Medications (Trade) Dose Ordered Sig/Dana Route PRN Reason Start Time Stop Time Status Last Admin Dose Admin Acetaminophen (Tylenol) 650 mg Q4H PRN ORAL Mild Pain (Pain Scale 1-3) 07/05/17 19:30 08/04/17 19:29 07/10/17 19:16 Acetaminophen (Tylenol) 650 mg Q4H PRN ORAL T>100.5 07/05/17 19:30 08/04/17 19:29 Apixaban (Eliquis) 2.5 mg BID ORAL 07/06/17 09:00 08/05/17 08:59 07/11/17 09:51 Bisacodyl (Dulcolax) 10 mg DAILYPRN PRN RECTAL Constipation 07/05/17 19:45 08/04/17 19:29 Cefepime HCl 500 mg/Dextrose 55 ml @ 110 mls/hr Q24H IVPB 07/06/17 21:00 07/13/17 20:59 07/10/17 22:47 Chlorhexidine Gluconate (Tiny-Hex 2%) 1 applic DAILY@2000 TOPIC 07/06/17 20:00 08/05/17 19:59 07/10/17 20:51 Dextrose (Dextrose 50%) STAT PRN IV Hypoglycemia 07/05/17 19:30 08/04/17 19:29 Digoxin (Lanoxin) 0.125 mg QOD ORAL 07/08/17 09:00 08/05/17 08:59 07/10/17 08:14 Docusate Sodium (Colace) 100 mg EVERY 12 HOURS ORAL 07/05/17 21:00 08/04/17 20:59 07/11/17 09:51 Hydrocortisone (Cortef) 25 mg DAILY@1400 ORAL 07/09/17 14:00 08/08/17 13:59 07/11/17 14:18 Hydrocortisone (Cortef) 50 mg DAILY@0700 ORAL 07/10/17 07:00 08/09/17 06:59 07/11/17 06:19 Insulin Aspart (NovoLOG) BEFORE MEALS AND HS SUBQ 07/05/17 21:00 08/04/17 20:59 07/11/17 12:35 Levothyroxine Sodium (Synthroid) 50 mcg DAILY@0630 ORAL 07/07/17 06:30 08/06/17 06:29 07/11/17 06:25 Metoprolol Succinate (Toprol XL) 25 mg DAILY ORAL 07/06/17 09:00 08/05/17 08:59 07/11/17 09:51 Midodrine (Pro-Amatine) 10 mg THREE TIMES A DAY ORAL 07/10/17 13:00 08/09/17 12:59 07/11/17 12:33 Ondansetron HCl (Zofran) 4 mg Q6H PRN IVP Nausea & Vomiting 07/05/17 19:30 08/04/17 19:29 Pantoprazole (Protonix) 40 mg DAILY ORAL 07/06/17 09:00 08/05/17 08:59 07/11/17 09:51 Polyethylene Glycol (Miralax) 17 gm DAILYPRN PRN ORAL Constipation 07/05/17 19:30 08/04/17 19:29 Vancomycin HCl (Vanco rx to dose) 1 ea DAILY PRN MISC Per rx protocol 07/05/17 19:45 08/04/17 19:44 Allergies: Coded Allergies: No Known Allergies (Verified , 04/24/10) Subjective awake, responsive, open eyes, NAD, son at bedside Objective Last Vital Signs Date Time Temp Pulse Resp B/P (MAP) Pulse Ox O2 Delivery O2 Flow Rate FiO2 07/11/17 09:51 71 107/60 07/11/17 04:19 97.6 18 98 Room Air Intake and Output 07/10/17 07/11/17 19:00 07:00 Intake Total 120 ml 55 ml Balance 120 ml 55 ml Intake Oral 120 ml IV Total 55 ml Objective GENERAL: awake, responsive, in no acute distress. HEAD AND NECK: Pupils are equal and reactive to light. Extraocular movements are intact. Neck was supple. No JVD. LUNGS: Fair air entry. No wheezing or rales. Decreased in the bases. Poor inspiratory effort. CHEST: The patient has PermCath that was noted in the right side of chest wall. HEART: S1 and S2. Irregularly irregular. + OSWALDO. ABDOMEN: Soft, not distended. Peritoneal catheter was noted in the right lower quadrant. EXTREMITIES: No cyanosis, clubbing, or edema. The patient has a laceration with Steri-Strips on the right lower extremity and anterior mims as well as right upper extremity has an AV fistula. NEUROLOGIC: Cranial nerves II through XII grossly intact. That patient is moving all extremities. Assessment/Plan Assessment/Plan 1. Hypotension, improving. 2. End-stage renal disease, on hemodialysis. 3. Anemia of chronic kidney disease. 4. Hypothyroidism. 5. Atrial fibrillation. 6. Coronary artery disease. 7. Diabetes type 2. 8. Right anterior mims laceration. 9. VRE colonization PLAN: Dr. Faisal Ortega from cardiology Dr. Marcus Vance from nephrology. Monitor laboratory and cultures. Broad-spectrum antibiotics: DC vancomycin and DC cefepime. Accu-Chek with sliding scale. PT Mobility Code status is full code. DVT prophylaxis with Eliquis. DC Planning to SNF Discuss with son at bedside regarding SNF placement. Toño Rangel MD Jul 11, 2017 14:45
[2017-07-11] MEDS ORDERED: NS 500ML ONE (16:07)
[2017-07-11] MEDS ORDERED: Tubing IV Secondary IV ONE ×2 (16:07→16:26)
[2017-07-11] MEDS ORDERED: D5W 275ml ONE (16:07)
--- NOTE | 2017-07-11 19:04 | Cardiology Progress Note ---
Assessment/Plan Assessment/Plan 1. Hypotension. resolved 2. Atrial fibrillation, likely permanent. Ventricular response appears to be controlled. 3. End-stage renal disease, on hemodialysis 4. Low tsh 5. sig MR 6. michael trop min elevated still bellow threshold for mi by WHO criteria adn iof ? sig in light of renal insuf bp seem better on midodrine dig level is fine tele afib hr controlled at tiem michael will decrease metoprolol to 12.5 mg dialy need fu with primary otolaryngology [facility] for MR treatment and evaluation dc plans per dr allen Subjective ROS Limited/Unobtainable: Yes Subjective not communicative agian today Objective Last 24 Hour Vital Signs Date Time Temp Pulse Resp B/P (MAP) Pulse Ox O2 Delivery O2 Flow Rate FiO2 07/11/17 17:40 Room Air 07/11/17 16:00 97.7 81 21 101/50 98 Room Air 07/11/17 16:00 68 07/11/17 12:00 97.6 88 20 109/67 98 Room Air 07/11/17 12:00 66 07/11/17 09:51 71 107/60 07/11/17 08:00 97.3 71 20 107/60 98 Room Air 07/11/17 08:00 74 07/11/17 04:19 97.6 74 18 112/61 98 Room Air 07/11/17 04:00 89 07/11/17 00:39 97.3 86 18 106/55 97 Room Air 07/11/17 00:00 73 07/10/17 20:32 98.1 88 18 100/45 90 Room Air 07/10/17 20:00 81 General Appearance: no apparent distress Neck: supple Cardiovascular: bradycardia, irregularly irregular Respiratory/Chest: lungs clear Abdomen: normal bowel sounds, non tender, soft Extremities: no swelling Intake and Output 07/10/17 07/11/17 19:00 07:00 Intake Total 120 ml 55 ml Balance 120 ml 55 ml Intake Oral 120 ml IV Total 55 ml GRIFFIN ALMONTE Jul 11, 2017 19:04
[2017-07-11] MEDS: Dyna-Hex 2% Top Sol 2oz TOPIC SCH (20:00)
[2017-07-11] MEDS: Cefepime 500mg in D5W 55ml IVPB SCH (21:00)
[2017-07-12 00:50] VITALS: BP 113/53
[2017-07-12 04:23] VITALS: BP 101/60
[2017-07-12] MEDS: NovoLOG Insulin Flexpen SUBQ SCH ×3 (06:08→17:28)
[2017-07-12 08:00] VITALS: BP 119/56
[2017-07-12] MEDS: Eliquis 2.5mg tablet ORAL SCH (09:00)
[2017-07-12] MEDS ORDERED: Metoprolol Succinate XL 25mg tab ORAL SCH (09:00)
[2017-07-12] MEDS: Docusate 100mg cap ORAL SCH (09:00)
[2017-07-12] MEDS: Digoxin 0.125mg tab ORAL SCH (09:32)
[2017-07-12] MEDS: Midodrine 10mg tab ORAL SCH ×2 (09:32→13:28)
[2017-07-12 11:49] VITALS: BP 109/53
--- NOTE | 2017-07-12 14:01 | Internal Med Progress Note ---
Subjective Physician Name Toño Rangel Attending Physician Toño Rangel MD Current Medications Medications (Trade) Dose Ordered Sig/Dana Route PRN Reason Start Time Stop Time Status Last Admin Dose Admin Acetaminophen (Tylenol) 650 mg Q4H PRN ORAL Mild Pain (Pain Scale 1-3) 07/05/17 19:30 08/04/17 19:29 07/10/17 19:16 Acetaminophen (Tylenol) 650 mg Q4H PRN ORAL T>100.5 07/05/17 19:30 08/04/17 19:29 Apixaban (Eliquis) 2.5 mg BID ORAL 07/06/17 09:00 08/05/17 08:59 07/12/17 09:00 Bisacodyl (Dulcolax) 10 mg DAILYPRN PRN RECTAL Constipation 07/05/17 19:45 08/04/17 19:29 Cefepime HCl 500 mg/Dextrose 55 ml @ 110 mls/hr Q24H IVPB 07/06/17 21:00 07/13/17 20:59 07/11/17 21:00 Chlorhexidine Gluconate (Tiny-Hex 2%) 1 applic DAILY@2000 TOPIC 07/06/17 20:00 08/05/17 19:59 07/11/17 20:00 Dextrose (Dextrose 50%) STAT PRN IV Hypoglycemia 07/05/17 19:30 08/04/17 19:29 Digoxin (Lanoxin) 0.125 mg QOD ORAL 07/08/17 09:00 08/05/17 08:59 07/12/17 09:32 Docusate Sodium (Colace) 100 mg EVERY 12 HOURS ORAL 07/05/17 21:00 08/04/17 20:59 07/12/17 09:00 Hydrocortisone (Cortef) 25 mg DAILY@1400 ORAL 07/09/17 14:00 08/08/17 13:59 07/12/17 13:28 Hydrocortisone (Cortef) 50 mg DAILY@0700 ORAL 07/10/17 07:00 08/09/17 06:59 07/12/17 06:24 Insulin Aspart (NovoLOG) BEFORE MEALS AND HS SUBQ 07/05/17 21:00 08/04/17 20:59 07/12/17 11:38 Levothyroxine Sodium (Synthroid) 50 mcg DAILY@0630 ORAL 07/07/17 06:30 08/06/17 06:29 07/12/17 06:24 Metoprolol Succinate (Toprol XL) 12.5 mg DAILY ORAL 07/12/17 09:00 08/11/17 08:59 07/12/17 09:34 Midodrine (Pro-Amatine) 10 mg THREE TIMES A DAY ORAL 07/10/17 13:00 08/09/17 12:59 07/12/17 13:28 Ondansetron HCl (Zofran) 4 mg Q6H PRN IVP Nausea & Vomiting 07/05/17 19:30 08/04/17 19:29 Pantoprazole (Protonix) 40 mg DAILY ORAL 07/06/17 09:00 08/05/17 08:59 07/12/17 09:32 Polyethylene Glycol (Miralax) 17 gm DAILYPRN PRN ORAL Constipation 07/05/17 19:30 08/04/17 19:29 Vancomycin HCl (Vanco rx to dose) 1 ea DAILY PRN MISC Per rx protocol 07/05/17 19:45 08/04/17 19:44 Allergies: Coded Allergies: No Known Allergies (Verified , 04/24/10) Subjective awake, responsive, open eyes, NAD, poor appetite Objective Last Vital Signs Date Time Temp Pulse Resp B/P (MAP) Pulse Ox O2 Delivery O2 Flow Rate FiO2 07/12/17 11:49 97.1 86 20 109/53 96 Room Air Intake and Output 07/11/17 07/12/17 19:00 07:00 Intake Total 620 ml Output Total 2300 ml Balance -1680 ml Intake Oral 120 ml Other 500 ml Output Urine Total 200 ml Hemodialysis UF 2100 ml # Voids 1 1 # Bowel Movements 1 1 Objective GENERAL: awake, responsive, in no acute distress. HEAD AND NECK: Pupils are equal and reactive to light. Extraocular movements are intact. Neck was supple. No JVD. LUNGS: Fair air entry. No wheezing or rales. Decreased in the bases. Poor inspiratory effort. CHEST: The patient has PermCath that was noted in the right side of chest wall. HEART: S1 and S2. Irregularly irregular. + OSWALDO. ABDOMEN: Soft, not distended. Peritoneal catheter was noted in the right lower quadrant. EXTREMITIES: No cyanosis, clubbing, or edema. The patient has a laceration with Steri-Strips on the right lower extremity and anterior mims as well as right upper extremity has an AV fistula. NEUROLOGIC: Cranial nerves II through XII grossly intact. That patient is moving all extremities. Assessment/Plan Assessment/Plan 1. Hypotension, improving. 2. End-stage renal disease, on hemodialysis. 3. Anemia of chronic kidney disease. 4. Hypothyroidism. 5. Atrial fibrillation. 6. Coronary artery disease. 7. Diabetes type 2. 8. Right anterior mims laceration. 9. VRE colonization PLAN: Dr. Faisal Ortega from cardiology Dr. Marcus Vance from nephrology. Monitor laboratory and cultures. Broad-spectrum antibiotics: off Accu-Chek with sliding scale. PT Mobility Code status is full code. DVT prophylaxis with Eliquis. [place] Planning to SNF today. Toño Rangel MD Jul 12, 2017 14:01
--- NOTE | 2017-07-12 14:27 | Nephrology Progress Note ---
Assessment/Plan Problem List: (1) CKD (chronic kidney disease) requiring chronic dialysis (2) Hypotension (3) Atrial fibrillation Assessment - End-stage renal disease, on hemodialysis. previously on PD, has right-side chest wall PermCath placement - Hypotension, possibly due to the sepsis. improved - Anemia of chronic kidney disease. - Hypothyroidism. - Acute atrial fibrillation. - Coronary artery disease. - Diabetes type 2. Plan Plan: start low dose steroid due to low cortisol level dialysed 07/11 next 07/13 Antibiotics Midodrine tid prelim echo reported 65% ej fx mag supplement per orders Subjective ROS Limited/Unobtainable: No Constitutional: Reports: malaise Objective Objective Last 24 Hour Vital Signs Date Time Temp Pulse Resp B/P (MAP) Pulse Ox O2 Delivery O2 Flow Rate FiO2 07/12/17 11:49 97.1 86 20 109/53 96 Room Air 07/12/17 09:34 62 119/56 07/12/17 09:32 62 07/12/17 08:00 97.3 62 20 119/56 95 Room Air 07/12/17 04:23 98.6 85 18 101/60 95 Room Air 07/12/17 04:00 71 07/12/17 00:50 96.9 68 18 113/53 96 Room Air 07/12/17 00:00 79 07/11/17 20:34 96.6 74 18 103/65 96 Room Air 07/11/17 20:25 Room Air 07/11/17 20:00 70 07/11/17 17:40 Room Air 07/11/17 16:00 97.7 81 21 101/50 98 Room Air 07/11/17 16:00 68 Intake and Output 07/11/17 07/12/17 19:00 07:00 Intake Total 620 ml Output Total 2300 ml Balance -1680 ml Intake Oral 120 ml Other 500 ml Output Urine Total 200 ml Hemodialysis UF 2100 ml # Voids 1 1 # Bowel Movements 1 1 Height (Feet): 5 Height (Inches): 4.00 Weight (Pounds): 150 General Appearance: no apparent distress Respiratory/Chest: decreased breath sounds Abdomen: soft Objective PE not changed JULIO CESAR LONGO Jul 12, 2017 14:27
[2017-07-12 16:00] VITALS: BP 116/58
--- NOTE | 2017-07-13 00:30 | Cardiology Report ---
APPROVED REPORT EKG Measurement Heart [id number] Atrial fibrillation Inferior infarct, age undetermined Anterior infarct, age undetermined Abnormal ECG
--- NOTE | 2017-07-17 12:38 | Discharge Summary ---
Discharge Summary Hospital Course Date of Admission Jul 05, 2017 at 09:43 Date of Discharge Jul 12, 2017 at 18:10 Admitting Diagnosis Weakness/hypotension HPI Dani Sam is a 76 year old male who was admitted on Jul 05, 2017 at 09:43 for Weakness/Hypotension Hospital Course dc summary #[id number] Discharge Medications New Medications: Acetaminophen* (Acetaminophen 325MG Tablet*) 325 Mg Tablet 650 MG ORAL Q4H PRN for 30 Days, TAB Hydrocortisone (Cortef) 10 Mg Tablet 50 MG ORAL DAILY@0700 for 30 Days, TAB Levothyroxine Sodium (Synthroid) 50 Mcg Tablet 75 MCG ORAL DAILY@0630, #30 TAB Take in the morning on an empty stomach, at least 30 minutes beforefood. Midodrine (Midodrine HCl) 10 Mg Tablet 10 MG ORAL THREE TIMES A DAY for 30 Days, TAB Polyethylene Glycol 3350* (Miralax*) 17 Gm Powd.pack 17 GM ORAL DAILYPRN PRN for 30 Days, PACK Changed Medications: Apixaban (Eliquis) 2.5 Mg Tablet 2.5 CAP ORAL BID, #60 EA 1 Refill (Changed from: Refills: ) Continued Medications: Digoxin* (Digoxin*) 125 Mcg Tablet Doxazosin Mesylate* (Doxazosin Mesylate*) 4 Mg Tablet Insulin Lispro (Humalog) 100 Unit/1 Ml Insuln.pen Metoprolol Succinate* (Metoprolol Succinate*) 25 Mg Tab.er.24h Phelps-3 Acid Ethyl Esters (Lovaza) 1 Gm Capsule 1 GM ORAL DAILY, #30 CAP 0 Refills Pantoprazole* (Pantoprazole*) 40 Mg Tablet. Discontinued Medications: Levothyroxine Sodium* (Levothyroxine Sodium*) 100 Mcg Tablet Discharge Condition Upon Discharge: stable Discharge Disposition Patient was discharged to SNF Discharge Diagnoses: Thomas (Shanika)Remedios NP Jul 17, 2017 12:38
--- NOTE | 2017-07-17 16:15 | Discharge Summary 2 SIG ---
DATE OF ADMISSION: 07/05/2017 DATE OF DISCHARGE: 07/12/2017 REASON FOR ADMISSION: 76-year-old male with past medical history significant for end-stage renal disease, on hemodialysis (was on peritoneal dialysis and recently switched to hemodialysis), history of hypotension, hypothyroidism, chronic atrial fibrillation, coronary artery disease, and diabetes mellitus type 2 presented to the hospital for evaluation after he was found hypotensive. The patient was noted to have hypotension in the emergency department as well. ECG revealed atrial fibrillation. Pro BNP was elevated, however in the setting of known chronic kidney disease, ProBNP was not a reliable indicator of acute congestive heart failure. Lungs were clear to auscultation bilaterally. Pulse oximetry was 100% on the room air. CT of the head revealed no acute intracranial pathology. Potassium was stable. Troponin was within normal limits. EKG revealed lateral ischemia, likely chronic. The patient was admitted with hypotension, atrial fibrillation, chronic kidney disease, and episode of generalized weakness. HOSPITAL COURSE: The patient was admitted to telemetry floor. Nephrology and Cardiology consults were requested. Chest x-ray revealed left basilar infiltrate and likely pleural fluid with mild cardiomegaly. Echocardiogram subsequently was done as ordered by smoke tester and revealed moderate aortic regurgitation, [id number] mitral regurgitation, ejection fraction 65% to 70%, and right ventricular systolic pressure of 67 consistent with severe pulmonary hypertension. First two troponin were negative. Next troponin was minimally elevated at 0.102. According to smoke tester, minimal elevation in troponin was still below threshold for PR by WHO criteria and likely was not significant due to the chronic kidney disease. Blood pressure improved with midodrine. Digoxin level was within normal limits. Atrial fibrillation heart rate was controlled with low dose of metoprolol. According to smoke tester, the patient needs follow up with his primary smoke tester for long-term management of significant mitral regurgitation. The patient with a history of hypothyroidism, noted low TSH and elevated T4. Dose of Synthroid was decreased. Hemodialysis was done as per senior ui designer. Volumes were closely monitored along with cardiorenal parameters. Noted low cortisol level. The patient was started on low dose of steroid. Magnesium was replaced..Hemoglobin and hematocrit were closely monitored. The patient has anemia of chronic kidney disease. Hemoglobin and hematocrit remained on the baseline. The patient was stable for discharge to alf facility. Follow up with medical doctor at the facility. FINAL DIAGNOSES: 1. Atrial fibrillation, permanent. 2. Hypotension. 3. End-stage renal disease, on hemodialysis. 4. Significant mitral regurgitation. 5. Anemia of chronic disease. 6. Hypothyroidism with low TSH. 7. Coronary artery disease. 8. Diabetes mellitus. DISCHARGE MEDICATIONS: See medication reconciliation list. DISCHARGE INSTRUCTIONS: The patient was discharged to alf facility. FOLLOWUP: Follow up with medical doctor at the facility. Toño Rangel M.D. I have been assigned to dictate discharge summary on this account and I was not involved in the patient's management. Remedios LizarragaHudson River State HospitalMatti N.PYanique DR: LOULOU JOB#: [id number] CC: EPI
== END 2017-07-12 18:10 | DRG 871 ==
LOC: EDBD 08:15 → EMR 08:20 → 2E 09:43 → EDBEDREQ 11:05 → 2E 07-07 11:53
PROC: 5A1D70Z Performance of Urinary Filtration, Intermittent, Less than 6 Hours Per Day (ICD-10-PCS; principal; 2017-07-06)
DX: A41.9 Sepsis, unspecified organism (principal); N18.6 End stage renal disease; I95.89 Other hypotension; I12.0 Hypertensive chronic kidney disease with stage 5 chronic kidney disease or end stage renal disease; E11.22 Type 2 diabetes mellitus with diabetic chronic kidney disease; I48.2 Chronic atrial fibrillation; D63.1 Anemia in chronic kidney disease; E03.9 Hypothyroidism, unspecified; Z99.2 Dependence on renal dialysis; I25.10 Atherosclerotic heart disease of native coronary artery without angina pectoris; I34.0 Nonrheumatic mitral (valve) insufficiency; R53.1 Weakness; Z79.4 Long term (current) use of insulin; Z79.01 Long term (current) use of anticoagulants
CPT/HCPCS: 36415; 70450; 71010; 80048; 80053; 80061; 80162; 80202; 82248; 82533; 82550; 82553; 82607; 82728; 82746; 82962; 82977; 83036; 83540; 83550; 83735; 83880; 84100; 84439; 84443; 84480; 84484; 84550; 85007; 85025; 86140; 87081; 93005; 93306; 99291; J1815